=== PATIENT | male | born 1960 | race Caucasian/White ===

== ENCOUNTER 2017-06-17 10:39 | Inpatient (IN) | payer OTHER ==
[~2017-06-17] VITALS: Ht 185.4 cm; Wt 88.9 kg
[2017-06-17] VITALS (14 sets, daily range): BP systolic 105–166; BP diastolic 58–81
[2017-06-17] MEDS ORDERED: NITR0.4T SL (11:09)
[2017-06-17] MEDS ORDERED: ATOR40TA59 PO (11:09)
[2017-06-17] MEDS ORDERED: METO-239 PO (11:09)
[2017-06-17] MEDS ORDERED: TRAM-48 PO (11:09)
[2017-06-17] MEDS ORDERED: cloNIDine HCL 0.1 MG TABLET PO ONE (11:15)
[2017-06-17 11:28] LABS: BASO # 0.1 x10^3/uL (0.0-0.2); BASO % 1 % (0-3); EOS % 1 % (0-3); HEMATOCRIT 47.4 % (39.0-53.0); HEMOGLOBIN 15.6 g/dL (13.0-17.5); LYMPH # 2.1 x10^3/uL (1.0-4.8); LYMPH % 19 % (24-48); MEAN CORPUSCULAR HEMOGLOBIN 29 pg (25-35); MEAN CORPUSCULAR HGB CONC 33 g/dL (31-37); MEAN CORPUSCULAR VOLUME 89 fL (79-100); MONO % 8 % (0-9); NEUT % 71 % (31-73); PLATELET COUNT 226 x10^3/uL (140-400); RED BLOOD COUNT 5.35 x10^6/uL (4.30-5.70); RED CELL DISTRIBUTION WIDTH 14.1 % (11.5-14.5); WHITE BLOOD COUNT 11.1 x10^3/uL (4.0-11.0)
[2017-06-17 11:41] LABS: ANION GAP 9 (6-14); BLOOD UREA NITROGEN 9 mg/dL (8-26); CALCIUM 9.2 mg/dL (8.5-10.1); CARBON DIOXIDE 29 mmol/L (21-32); CHLORIDE 106 mmol/L (98-107); GFR 76.7; GLUCOSE 102 mg/dL (70-99); POTASSIUM 4.6 mmol/L (3.5-5.1); SODIUM 144 mmol/L (136-145)
--- NOTE | 2017-06-17 11:41 | ED.ADGEN ---
Past Medical History Past Medical History: CAD, Depression, High Cholesterol, Heart Disease, Hypertension, Hypotension Past Surgical History: Coronary Bypass Surgery Alcohol Use: None Drug Use: None Adult General Chief Complaint Chief Complaint: HEADACHE HPI HPI Patient is a 57 year old man, history of hypertension, hypercholesterolemia, CAD status post CABG, who presents to the emergency department with a complaint of elevated blood pressures, headache and intermittent chest pain. Patient states he seen by his primary care provider yesterday, after treatment experiencing a headache for the past 3 days. He describes the pain as "all over my head", and associated with some blurred vision. Denies any weakness, numbness or tingling, any nausea or vomiting, any injuries, states he has intermittent "gassy" left upper chest pain that comes and goes. Is not currently experiencing any chest pain, is experiencing headache. Patient states that he was noted to have high blood pressure at the doctor's office, and that his metoprolol which was taking 25 mg daily, was doubled to 50. He states he has taken 50 mg of metoprolol for the past 2 days, including this morning, but since the headache persisted, he came to the ED for evaluation. Patient's blood pressure on arrival to the emergency department is 230s over 120s, heart rate is in the 50s, which patient states is normal for him due to his prolonged use metoprolol, oxygen saturation is 98% on room air rested for rate is 22 and unlabored. Patient denies any fevers, chills, any travel, any neck pain, any muscle aches, any swelling of the extremities, any rashes, any other medication changes any drugs or alcohol. He does smoke a pack of cigarettes daily. Review of Systems Review of Systems Constitutional: Denies fever or chills. [] Eyes: Denies change in visual acuity. [] HENT: Denies nasal congestion or sore throat. [] Respiratory: Denies cough or shortness of breath. [] Cardiovascular: Left upper chest pain, intermittent over the past several days. No edema. GI: Denies abdominal pain, nausea, vomiting, bloody stools or diarrhea. [] : Denies dysuria. [] Musculoskeletal: Denies back pain or joint pain. [] Integument: Denies rash. [] Neurologic: Denies focal weakness or sensory changes. Headache. Blurred vision. Endocrine: Denies polyuria or polydipsia. [] Lymphatic: Denies swollen glands. [] Psychiatric: Denies depression or anxiety. [] Current Medications Current Medications Current Medications Medications (Trade) Dose Ordered Sig/Abdelrahman Start Time Stop Time Status Last Admin Dose Admin Clonidine HCl (Catapres) 0.2 mg 1X ONCE 06/17/17 11:15 06/17/17 11:20 DC 06/17/17 11:29 0.2 MG Nicardipine HCl 50 mg/Sodium Chloride 270 ml @ 0 mls/hr CONT PRN 06/17/17 11:15 06/17/17 12:33 12.5 MLS/HR Allergies Allergies Allergies Coded Allergies Type Severity Reaction Last Updated Verified No Known Drug Allergies 06/17/17 No Physical Exam Physical Exam Constitutional: Well developed, well nourished, no acute distress, non-toxic appearance. [] HENT: Normocephalic, atraumatic, bilateral external ears normal, oropharynx moist, no oral exudates, nose normal. [] Eyes: PERRLA, EOMI, conjunctiva normal, no discharge. [] Neck: Normal range of motion, no tenderness, supple, no stridor. [] Cardiovascular:Heart rate regular rhythm, no murmur, S1, S2, rubs or gallops. [] Lungs & Thorax: Bilateral breath sounds clear to auscultation, no wheezing, rhonchi, rales. No chest or crepitus or tenderness. [] Abdomen: Bowel sounds normal, soft, no tenderness, no rebound, rigidity, no guarding, no masses, no pulsatile masses. [] Skin: Warm, dry, no erythema, no rash. [] Back: No tenderness, no CVA tenderness. [] Extremities: No tenderness, no cyanosis, no clubbing, ROM intact, no edema. Negative Homans sign.[] Neurologic: Alert and oriented X 3, normal motor function, normal sensory function, no focal deficits noted. [] Psychologic: Affect normal, judgement normal, mood normal. [] Current Patient Data Vital Signs Vital Signs Date Time Temp Pulse Resp B/P (MAP) Pulse Ox O2 Delivery O2 Flow Rate FiO2 06/17/17 12:20 64 18 136/78 (97) 97 Room Air 06/17/17 10:47 97.7 97.7 Lab Values Laboratory Tests Test 06/17/17 11:00 White Blood Count 11.1 x10^3/uL (4.0-11.0) H Red Blood Count 5.35 x10^6/uL (4.30-5.70) Hemoglobin 15.6 g/dL (13.0-17.5) Hematocrit 47.4 % (39.0-53.0) Mean Corpuscular Volume 89 fL (79-100) Mean Corpuscular Hemoglobin 29 pg (25-35) Mean Corpuscular Hemoglobin Concent 33 g/dL (31-37) Red Cell Distribution Width 14.1 % (11.5-14.5) Platelet Count 226 x10^3/uL (140-400) Neutrophils (%) (Auto) 71 % (31-73) Lymphocytes (%) (Auto) 19 % (24-48) L Monocytes (%) (Auto) 8 % (0-9) Eosinophils (%) (Auto) 1 % (0-3) Basophils (%) (Auto) 1 % (0-3) Neutrophils # (Auto) 7.9 x10^3uL (1.8-7.7) H Lymphocytes # (Auto) 2.1 x10^3/uL (1.0-4.8) Monocytes # (Auto) 0.9 x10^3/uL (0.0-1.1) Eosinophils # (Auto) 0.1 x10^3/uL (0.0-0.7) Basophils # (Auto) 0.1 x10^3/uL (0.0-0.2) Sodium Level 144 mmol/L (136-145) Potassium Level 4.6 mmol/L (3.5-5.1) Chloride Level 106 mmol/L (98-107) Carbon Dioxide Level 29 mmol/L (21-32) Anion Gap 9 (6-14) Blood Urea Nitrogen 9 mg/dL (8-26) Creatinine 1.0 mg/dL (0.7-1.3) Estimated GFR (Cockcroft-Gault) 76.7 Glucose Level 102 mg/dL (70-99) H Calcium Level 9.2 mg/dL (8.5-10.1) Total Bilirubin 0.2 mg/dL (0.2-1.0) Direct Bilirubin < 0.1 mg/dL (0.0-0.2) Aspartate Amino Transferase (AST) 20 U/L (15-37) Alanine Aminotransferase (ALT) 32 U/L (16-63) Alkaline Phosphatase 102 U/L (46-116) Troponin I Quantitative < 0.017 ng/mL (0.000-0.055) RC-Qmo-L-Type Natriuretic Peptide 245 pg/mL (0-124) H Total Protein 7.2 g/dL (6.4-8.2) Albumin 3.5 g/dL (3.4-5.0) Thyroid Stimulating Hormone (TSH) 2.011 uIU/mL (0.358-3.74) Laboratory Tests 06/17/17 11:00 Laboratory Tests 06/17/17 11:00 EKG EKG EC: Sinus bradycardia, heart rate 52 beats per minutes, upright axis, QTC of 368, NC 154, QRS of 90, patient with contour abnormality is noted in the anterior septal leads, but no ST depressions or elevations. Abnormal ECG, no prior for comparison. As interpreted by me.[] Radiology/Procedures Radiology/Procedures [][address] [id number] IMAGING REPORT Signed PATIENT: PRESTON BORJA ACCOUNT: [id number] : 1960 LOCATION: ER AGE: 57 SEX: M EXAM STATUS: REG ER ORD. PHYSICIAN: FOUZIA LAZARO DO REASON: HTN/CP PROCEDURE: PORTABLE CHEST 1V Portable chest, 06/17/2017: History: Hypertension, chest pain Comparison is made to a study from 11/22/2009. There has been a previous median sternotomy. The heart size and pulmonary vascularity are normal. The lungs are clear. There is no evidence of pleural fluid. IMPRESSION: No acute cardiopulmonary abnormality is detected. DICTATED and SIGNED BY: DILCIA CAMPO MD DATE: 06/17/17 1131 CC: FOUZIA LAZARO DO; DYLON NICHOLS MD ~ Impressions: [address] [id number] IMAGING REPORT Signed PATIENT: PRESTON BORJA ACCOUNT: [id number] : 1960 LOCATION: ER AGE: 57 SEX: M EXAM STATUS: REG ER ORD. PHYSICIAN: FOUZIA LAZARO DO REASON: JAVIER/HTN PROCEDURE: CT HEAD WO CONTRAST CT of the head without contrast, 06/17/2017: History: Headache, hypertension The ventricles are within normal limits in size. There is no shift of the midline structures. There is no evidence of acute intracranial hemorrhage or mass effect. IMPRESSION: No acute intracranial abnormality is detected. RS Compliance Statement: One or more of the following individualized dose reduction techniques were utilized for this examination: 1. Automated exposure control 2. Adjustment of the mA and/or kV according to patient size 3. Use of iterative reconstruction technique DICTATED and SIGNED BY: DILCIA CAMPO MD DATE: 06/17/17 1158 CC: FOUZIA LAZARO DO; DYLON NICHOLS MD ~ Course & Med Decision Making Course & Med Decision Making Pertinent Labs and Imaging studies reviewed. (See chart for details) Patient with generalized blurred vision in both eyes, without any visual field cuts. Normal neurologic examination. Malignant hypertension, with failure of outpatient oral therapy. CT of the head obtained reveals no concerning findings , patient did receive Catapres 0.1 mg orally in the emergency department, as he has already taken his home beta chris with a heart rate in the 50s. Chest x- ray was unremarkable, laboratory studies not reveal any acutely concerning findings. Patient was initiated on a nicardipine infusion with good effect, blood pressures in the 180s over 70s, with significant improvement of headache and blurred vision. Patient is agreeable for [facility] or the hospital for titration of blood pressure control, and transition oral medications with cardiology. I did discuss findings as above with Dr. Quiros of internal medicine , patient accepted to his service as a full admission to the ICU for continued blood pressure management and monitoring and titration, patient's nicardipine was further titrated down, blood pressures to 130s over 70s. Patient remains clinically stable and comfortable in the emergency department. Consultation placed for Dr. Abdi cardiology with bridge orders entered per discussion. Dragon Disclaimer Dragon Disclaimer This electronic medical record was generated, in whole or in part, using a voice recognition dictation system. Departure Impression: Primary Impression: Malignant hypertension Disposition: ADMITTED INPATIENT Admitting Physician: Janis Quiros Condition: IMPROVED FOUZIA LAZARO DO Jun 17, 2017 11:41
[2017-06-17 11:47] LABS: ALBUMIN 3.5 g/dL (3.4-5.0); ALK PHOS 102 U/L (46-116); ALT (SGPT) 32 U/L (16-63); AST (SGOT) 20 U/L (15-37); DIRECT BILIRUBIN < 0.1 mg/dL (0.0-0.2); TOTAL BILIRUBIN 0.2 mg/dL (0.2-1.0); TOTAL PROTEIN 7.2 g/dL (6.4-8.2)
--- NOTE | 2017-06-17 12:01 | RAD ---
CT of the head without contrast, 06/17/2017: History: Headache, hypertension The ventricles are within normal limits in size. There is no shift of the midline structures. There is no evidence of acute intracranial hemorrhage or mass effect. IMPRESSION: No acute intracranial abnormality is detected. PQRS Compliance Statement: One or more of the following individualized dose reduction techniques were utilized for this examination: 1. Automated exposure control 2. Adjustment of the mA and/or kV according to patient size 3. Use of iterative reconstruction technique
[2017-06-17] MEDS ORDERED: ONDANSETRON PF 4 MG/2 ML VIAL. IV PRN (12:45)
[2017-06-17] MEDS: MORPHINE SULFATE 2 MG/ML DISP.SYRIN. IV PRN ×3 (13:28→23:34)
[2017-06-17] MEDS: ACETAMINOPHEN 325 MG TABLET. PO PRN ×2 (13:28→23:34)
[2017-06-17] MEDS ORDERED: AMOX875T PO (14:59)
[2017-06-17] MEDS: traMADol 50 MG TABLET PO SCH ×2 (15:10→21:10)
[2017-06-17] MEDS: AMOXICILLIN 250 MG CAPSULE. PO SCH ×2 (15:36→21:09)
--- NOTE | 2017-06-17 17:24 | PDOC1 ---
History and Physical Date of Admission Date of Admission DATE: 06/17/17 TIME: 17:16 Identification/Chief Complaint Chief Complaint headache Problems: Source Source: Chart review, Patient History of Present Illness History of Present Illness Mr. Mckeon, is a 57 year old man, admit with headache and markedly elevated blood pressures, and intermittent chest pain. had seen his PCP this week, they doubled his metoprolol for HTN headache, with some blurry visual change, "it looks like The Matrix when I move my hand" no hallucinations, no drug use, no travel, no change He reported chest pain to the ER, but reported none to me. "gassy" upper chest pain he has slept some after doses of morphine have helped his headache, BP has been up, but JAVIER has been intermittent, he still smokes after CABG Past Medical History Past Medical History history of hypertension, hypercholesterolemia, CAD status post CABG, Cardiovascular: CAD, HTN Pulmonary: No pertinent hx Hepatobiliary: No pertinent hx Psych: No pertinent hx Musculoskeletal: low back pain Rheumatologic: No pertinent hx Infectious disease: No pertinent hx Endocrine: No pertinent hx Dermatology: No pertinent hx Past Surgical History Past Surgical History: CABG Family History Family History: Hypertension Social History Smoke: 1 pack per day ALCOHOL: none Drugs: None Current Problem List Problem List Problems Medical Problems: (1) Malignant hypertension Status: Acute Problems: Current Medications Current Medications Current Medications Clonidine HCl (Catapres) 0.2 mg 1X ONCE PO Last administered on 06/17/17 11:29 ; Start 06/17/17 at 11:15; Stop 06/17/17 at 11:20; Status DC Nicardipine HCl 50 mg/Sodium Chloride 270 ml @ 0 mls/hr CONT PRN IV SEE I/O RECORD Last administered on 06/17/17 12:33; Start 06/17/17 at 11:15 Ondansetron HCl (Zofran) 4 mg PRN Q8HRS PRN IV NAUSEA/VOMITING; Start 06/17/17 at 12:45; Stop 06/18/17 at 12:44 Morphine Sulfate 2 mg PRN Q2HR PRN IV PAIN SEVERE Last administered on 15:05; Start 06/17/17 at 13:15 Acetaminophen (Tylenol) 650 mg PRN Q6HRS PRN PO HEADACHE Last administered on 13:28; Start 06/17/17 at 13:15 Tramadol HCl (Ultram) 50 mg Q8HRS PO ; Start 06/17/17 at 15:10 Amoxicillin (Amoxil) 750 mg BID PO Last administered on 06/17/17t 15:36; Start 06/17/17 at 15:30 Active Scripts Active Reported Amoxicillin 875 Mg Tablet 875 Mg PO BID Atorvastatin Calcium 40 Mg Tablet 1 Tab PO DAILY Metoprolol Succinate ( Xl ) (Metoprolol Succinate) 25 Mg Tab.er.24h 1 Tab PO DAILY Nitrostat (Nitroglycerin) 0.4 Mg Tab.subl 1 Tab SL UD Ultram (Tramadol Hcl) 50 Mg Tablet 1-2 Tab PO Q8HRS Allergies Allergies: Coded Allergies: No Known Drug Allergies (Unverified , 06/17/17) ROS General: YES: Other, No: Chills, Night Sweats, Fatigue, Malaise, Appetite PSYCHOLOGICAL ROS: No: Anxiety, Behavioral Disorder, Concentration difficultie , Decreased libido, Depression, Disorientation, Hallucinations, Hostility, Irritablity, Memory difficulties, Mood Swings, Obsessive thoughts, Other Eyes: No Blurry vision, No Decreased vision, No Double vision, No Dry eyes, No Excessive tearing, No Eye Pain, No Itchy Eyes, No Loss of vision, No Photophobia , No Scotomata, No Uses contacts, No Uses glasses, No Other HEENT: YES: Heacaches, Visual Changes, No: Hearing change, Nasal congestion, Nasal discharge, Oral lesions, Sinus pain, Sore Throat, Epistaxis, Sneezing, Snoring, Tinnitus, Vertigo, Vocal changes, Other Respiratory: No: Cough, Hemoptysis, Orthopnea, Pleuritic Pain, Shortness of breath, SOB with excertion, Sputum Changes, Stridor, Tachypnea, Wheezing, Other Cardiovascular: No Chest Pain, No Palpitations, No Orthopnea, No Paroxysmal Noc. Dyspnea, No Edema, No Lt Headedness, No Other Gastrointestinal: No Nausea, No Vomiting, No Abdominal Pain, No Diarrhea, No Constipation, No Melena, No Hematochezia, No Other Genitourinary: No Dysuria, No Frequency, No Incontinence, No Hematuria, No Retention, No Discharge, No Urgency, No Pain, No Flank Pain, No Other, No , No , No , No , No , No , No Musculoskeletal: No Gait Disturbance, No Joint Pain, No Joint Stiffness, No Joint Swelling, No Muscle Pain, No Muscular Weakness, No Pain In:, No Swelling In:, No Other Neurological: No Behavorial Changes, No Bowel/Bladder ControlChng, No Confusion , No Dizziness, No Gait Disturbance, No Headaches, No Impaired Coord/balance, No Memory Loss, No Numbness/Tingling, No Seizures, No Speech Problems, No Tremors, No Visual Changes, No Weakness, No Other Skin: No Dry Skin, No Eczema, No Hair Changes, No Lumps, No Mole Changes, No Mottling, No Nail Changes, No Pruritus, No Rash, No Skin Lesion Changes, No Other, No Acne Physical Exam Physical Exam no nuchal rigidity, neg psoas sign General: Alert, Oriented X3, Cooperative, No acute distress HEENT: Atraumatic, PERRLA, EOMI, Mucous membr. moist/pink Lungs: Normal air movement, Other (min rales) Abdomen: Normal bowel sounds, Soft Rectal Exam: not examined, deferred Extremities: No clubbing, No edema, Normal pulses Skin: No rashes, No breakdown Neuro: Normal speech, Strength at 5/5 X4 ext, Sensation intact Psych/Mental Status: Mental status NL, Mood NL Vitals Vitals Vital Signs Date Time Temp Pulse Resp B/P (MAP) Pulse Ox O2 Delivery O2 Flow Rate FiO2 06/17/17 17:08 58 135/59 (84) 99 Room Air 06/17/17 16:00 98.1 98.1 06/17/17 12:36 18 Labs Labs Laboratory Tests Test 06/17/17 11:00 06/17/17 14:00 White Blood Count 11.1 x10^3/uL (4.0-11.0) Red Blood Count 5.35 x10^6/uL (4.30-5.70) Hemoglobin 15.6 g/dL (13.0-17.5) Hematocrit 47.4 % (39.0-53.0) Mean Corpuscular Volume 89 fL (79-100) Mean Corpuscular Hemoglobin 29 pg (25-35) Mean Corpuscular Hemoglobin Concent 33 g/dL (31-37) Red Cell Distribution Width 14.1 % (11.5-14.5) Platelet Count 226 x10^3/uL (140-400) Neutrophils (%) (Auto) 71 % (31-73) Lymphocytes (%) (Auto) 19 % (24-48) Monocytes (%) (Auto) 8 % (0-9) Eosinophils (%) (Auto) 1 % (0-3) Basophils (%) (Auto) 1 % (0-3) Neutrophils # (Auto) 7.9 x10^3uL (1.8-7.7) Lymphocytes # (Auto) 2.1 x10^3/uL (1.0-4.8) Monocytes # (Auto) 0.9 x10^3/uL (0.0-1.1) Eosinophils # (Auto) 0.1 x10^3/uL (0.0-0.7) Basophils # (Auto) 0.1 x10^3/uL (0.0-0.2) Sodium Level 144 mmol/L (136-145) Potassium Level 4.6 mmol/L (3.5-5.1) Chloride Level 106 mmol/L (98-107) Carbon Dioxide Level 29 mmol/L (21-32) Anion Gap 9 (6-14) Blood Urea Nitrogen 9 mg/dL (8-26) Creatinine 1.0 mg/dL (0.7-1.3) Estimated GFR (Cockcroft-Gault) 76.7 Glucose Level 102 mg/dL (70-99) Calcium Level 9.2 mg/dL (8.5-10.1) Total Bilirubin 0.2 mg/dL (0.2-1.0) Direct Bilirubin < 0.1 mg/dL (0.0-0.2) Aspartate Amino Transf (AST/SGOT) 20 U/L (15-37) Alanine Aminotransferase (ALT/SGPT) 32 U/L (16-63) Alkaline Phosphatase 102 U/L (46-116) Troponin I Quantitative < 0.017 ng/mL (0.000-0.055) < 0.017 ng/mL (0.000-0.055) NB-Tmy-Q-Type Natriuretic Peptide 245 pg/mL (0-124) Total Protein 7.2 g/dL (6.4-8.2) Albumin 3.5 g/dL (3.4-5.0) Thyroid Stimulating Hormone (TSH) 2.011 uIU/mL (0.358-3.74) Laboratory Tests Test 06/17/17 11:00 06/17/17 14:00 White Blood Count 11.1 x10^3/uL (4.0-11.0) Red Blood Count 5.35 x10^6/uL (4.30-5.70) Hemoglobin 15.6 g/dL (13.0-17.5) Hematocrit 47.4 % (39.0-53.0) Mean Corpuscular Volume 89 fL (79-100) Mean Corpuscular Hemoglobin 29 pg (25-35) Mean Corpuscular Hemoglobin Concent 33 g/dL (31-37) Red Cell Distribution Width 14.1 % (11.5-14.5) Platelet Count 226 x10^3/uL (140-400) Neutrophils (%) (Auto) 71 % (31-73) Lymphocytes (%) (Auto) 19 % (24-48) Monocytes (%) (Auto) 8 % (0-9) Eosinophils (%) (Auto) 1 % (0-3) Basophils (%) (Auto) 1 % (0-3) Neutrophils # (Auto) 7.9 x10^3uL (1.8-7.7) Lymphocytes # (Auto) 2.1 x10^3/uL (1.0-4.8) Monocytes # (Auto) 0.9 x10^3/uL (0.0-1.1) Eosinophils # (Auto) 0.1 x10^3/uL (0.0-0.7) Basophils # (Auto) 0.1 x10^3/uL (0.0-0.2) Sodium Level 144 mmol/L (136-145) Potassium Level 4.6 mmol/L (3.5-5.1) Chloride Level 106 mmol/L (98-107) Carbon Dioxide Level 29 mmol/L (21-32) Anion Gap 9 (6-14) Blood Urea Nitrogen 9 mg/dL (8-26) Creatinine 1.0 mg/dL (0.7-1.3) Estimated GFR (Cockcroft-Gault) 76.7 Glucose Level 102 mg/dL (70-99) Calcium Level 9.2 mg/dL (8.5-10.1) Total Bilirubin 0.2 mg/dL (0.2-1.0) Direct Bilirubin < 0.1 mg/dL (0.0-0.2) Aspartate Amino Transf (AST/SGOT) 20 U/L (15-37) Alanine Aminotransferase (ALT/SGPT) 32 U/L (16-63) Alkaline Phosphatase 102 U/L (46-116) Troponin I Quantitative < 0.017 ng/mL (0.000-0.055) < 0.017 ng/mL (0.000-0.055) UI-Vpn-C-Type Natriuretic Peptide 245 pg/mL (0-124) Total Protein 7.2 g/dL (6.4-8.2) Albumin 3.5 g/dL (3.4-5.0) Thyroid Stimulating Hormone (TSH) 2.011 uIU/mL (0.358-3.74) VTE Prophylaxis Ordered VTE Prophylaxis Devices: No VTE Pharmacological Prophylaxi: No Assessment/Plan Assessment/Plan ACCELerated, malignant htn headache, with aura, some migranous component, try tryptan tobaccoism, I urged cessation, my make the JAVIER worse IVONE MERCHANT MD Jun 17, 2017 17:24
[2017-06-17] MEDS ORDERED: METOPROLOL SUCC 24HR ER 25 MG TAB.ER.24H. PO SCH (17:30)
[2017-06-17] MEDS ORDERED: NITROGLYCERIN SUBLINGUAL 0.4 MG BOTTLE OF 25. SL PRN (17:30)
[2017-06-17] MEDS: SUMAtriptan SUCCINATE 25 MG TABLET PO PRN ×2 (18:16→21:53)
[2017-06-17] MEDS: ATORVASTATIN CALCIUM 40 MG TABLET. PO SCH (21:08)
[2017-06-17] MEDS ORDERED: NICOTINE POLACRILEX 2MG GUM PACKAGE of 12. BC PRN (21:30)
[2017-06-17] MEDS ORDERED: amLODIPine BESYLATE 10 MG TABLET PO ONE (21:45)
[2017-06-17] MEDS ORDERED: LISINOPRIL 20 MG TABLET PO ONE (21:45)
[2017-06-17] MEDS: NICOTINE 21MG PATCH. TD PRN (21:51)
[2017-06-18] VITALS (22 sets, daily range): BP systolic 106–190; BP diastolic 59–97
[2017-06-18] MEDS: MORPHINE SULFATE 2 MG/ML DISP.SYRIN. IV PRN ×2 (02:59→18:54)
[2017-06-18] MEDS: SUMAtriptan SUCCINATE 25 MG TABLET PO PRN (03:05)
[2017-06-18 05:49] LABS: BASO # 0.1 x10^3/uL (0.0-0.2); BASO % 1 % (0-3); EOS % 1 % (0-3); HEMATOCRIT 44.8 % (39.0-53.0); HEMOGLOBIN 15.2 g/dL (13.0-17.5); LYMPH # 2.2 x10^3/uL (1.0-4.8); LYMPH % 19 % (24-48); MEAN CORPUSCULAR HEMOGLOBIN 29 pg (25-35); MEAN CORPUSCULAR HGB CONC 34 g/dL (31-37); MEAN CORPUSCULAR VOLUME 87 fL (79-100); MONO % 8 % (0-9); NEUT % 71 % (31-73); PLATELET COUNT 220 x10^3/uL (140-400); RED BLOOD COUNT 5.16 x10^6/uL (4.30-5.70); RED CELL DISTRIBUTION WIDTH 13.9 % (11.5-14.5); WHITE BLOOD COUNT 11.6 x10^3/uL (4.0-11.0)
[2017-06-18 05:58] LABS: CALCIUM 8.8 mg/dL (8.5-10.1); GFR 76.7
--- NOTE | 2017-06-18 06:06 | EKG ---
[facility] [address] [place] [address] Test Date: 2017-06-17 Test Time: 11:00:26 Pat Name: PRESTON BORJA Department: Room: 104 1 Gender: M [facility] Coord[facility]: : 1960 Requested By: FOUZIA LAZARO Order Number: [id number] Reading MD: Chris Abdi Measurements Intervals [place] Rate: 52 P: 27 NM: 164 QRS: 30 QRSD: 90 T: 28 QT: 394 QTc: 368 Interpretive Statements SINUS RHYTHM Electronically Signed On 06-18-2017 8:27:48 CDT by Chris Abdi
[2017-06-18] MEDS: traMADol 50 MG TABLET PO SCH ×3 (06:22→22:00)
--- NOTE | 2017-06-18 08:40 | PDOC2 ---
CARDIOLOGY CONSULT NOTE CHEIF COMPLAINT: Chest pain Problems: HPI: Pleasant 57 y.o man coming to the hospital for elevated BP. In ER was given Cardene gtt and started to have better control. SOCHX: No significant alcohol, tobacco or illicit drug use. FAMHX: No early CAD or sudden . CURRENT MEDS: Meds reviewed. ALLERGIES: Allergies Coded Allergies Type Severity Reaction Last Updated Verified No Known Drug Allergies 06/17/17 No ROS: Negative for 07/22 systems reviewed unless otherwise noted above in HPI. PHYSICAL EXAM: Vital Signs: Vital Signs Date Time Temp Pulse Resp B/P (MAP) Pulse Ox O2 Delivery O2 Flow Rate FiO2 06/18/17 06:31 50 14 137/77 (97) 97 Room Air 06/18/17 04:00 98.5 98.5 Physical Exam: GEN.: No apparent distress. Alert and oriented. HEENT: Head is normocephalic, atraumatic NECK: Supple. LUNGS: Clear to auscultation. HEART: RRR, S1, S2 present. Peripheral pulses intact ABDOMEN: Soft, nontender. Positive bowel sounds. EXTREMITIES: Without any cyanosis. NEUROLOGIC: Normal speech, normal tone PSYCHIATRIC: Normal affect, normal mood. SKIN: No ulcerations DIAGNOSTIC TESTING: Head CT negative Trop negative. ASSESSMENT: 1. Hypertensive urgency. 2. Headaches 3. CAD s/p CABG PLAN: 1. Doing well after amlodipine and lisinopril 2. Will stop Toprol given jackie 3. Start Lisinopril 20mg daily (baseline BP in PCP office apparently 180 systolic). 4. Headache w/u per PCP. 5. Outpt f/u in cardiology with Dr. Bridges Thanks for consult. Pls call with questions. VENKATESH DALTON MD Jun 18, 2017 08:40
[2017-06-18] MEDS ORDERED: CYCLOBENZAPRINE 10 MG TABLET. PO ONE (09:30)
[2017-06-18] MEDS: AMOXICILLIN 250 MG CAPSULE. PO SCH ×2 (09:43→20:57)
[2017-06-18] MEDS: LISINOPRIL 10 MG TABLET PO SCH (09:43)
[2017-06-18] MEDS ORDERED: KETOROLAC TROMETHAMINE 30 MG/ML INJ. IV ONE (09:45)
--- NOTE | 2017-06-18 09:47 | PDOC ---
PROGRESS NOTES Chief Complaint Chief Complaint ACCELerated, malignant htn headache, with aura, some migranous component, Smoker History of Present Illness History of Present Illness Off cardizem gtt BP better BUt headache persists Wants to go home, does not want any more tests Systolic at PCP 180s HR 50s CArds stopped BB, (jackie) started lisinopril NO relief with imitrex 50 Relived by shoulder massage PLAN: TOradol 30 IV x 1 now TRial of flexeril prn COnsult neuro, but if pt feels better later and cant wait for neuro then ok to cancel consult Rx in chart REally wants to go home today, with headache better Dw RN ailyn and and pt Vitals Vitals Vital Signs Date Time Temp Pulse Resp B/P (MAP) Pulse Ox O2 Delivery O2 Flow Rate FiO2 06/18/17 09:43 57 149/77 06/18/17 06:31 14 97 Room Air 06/18/17 04:00 98.5 98.5 Physical Exam General: Alert, Oriented X3, Cooperative, No acute distress Abdomen: Normal bowel sounds, Soft Extremities: No clubbing, No edema, Normal pulses Skin: No rashes, No breakdown Labs LABS Laboratory Tests Test 06/17/17 11:00 06/17/17 14:00 06/17/17 17:30 06/18/17 04:00 White Blood Count 11.1 x10^3/uL (4.0-11.0) 11.6 x10^3/uL (4.0-11.0) Red Blood Count 5.35 x10^6/uL (4.30-5.70) 5.16 x10^6/uL (4.30-5.70) Hemoglobin 15.6 g/dL (13.0-17.5) 15.2 g/dL (13.0-17.5) Hematocrit 47.4 % (39.0-53.0) 44.8 % (39.0-53.0) Mean Corpuscular Volume 89 fL (79-100) 87 fL (79-100) Mean Corpuscular Hemoglobin 29 pg (25-35) 29 pg (25-35) Mean Corpuscular Hemoglobin Concent 33 g/dL (31-37) 34 g/dL (31-37) Red Cell Distribution Width 14.1 % (11.5-14.5) 13.9 % (11.5-14.5) Platelet Count 226 x10^3/uL (140-400) 220 x10^3/uL (140-400) Neutrophils (%) (Auto) 71 % (31-73) 71 % (31-73) Lymphocytes (%) (Auto) 19 % (24-48) 19 % (24-48) Monocytes (%) (Auto) 8 % (0-9) 8 % (0-9) Eosinophils (%) (Auto) 1 % (0-3) 1 % (0-3) Basophils (%) (Auto) 1 % (0-3) 1 % (0-3) Neutrophils # (Auto) 7.9 x10^3uL (1.8-7.7) 8.3 x10^3uL (1.8-7.7) Lymphocytes # (Auto) 2.1 x10^3/uL (1.0-4.8) 2.2 x10^3/uL (1.0-4.8) Monocytes # (Auto) 0.9 x10^3/uL (0.0-1.1) 0.9 x10^3/uL (0.0-1.1) Eosinophils # (Auto) 0.1 x10^3/uL (0.0-0.7) 0.2 x10^3/uL (0.0-0.7) Basophils # (Auto) 0.1 x10^3/uL (0.0-0.2) 0.1 x10^3/uL (0.0-0.2) Sodium Level 144 mmol/L (136-145) 142 mmol/L (136-145) Potassium Level 4.6 mmol/L (3.5-5.1) 4.0 mmol/L (3.5-5.1) Chloride Level 106 mmol/L (98-107) 105 mmol/L (98-107) Carbon Dioxide Level 29 mmol/L (21-32) 26 mmol/L (21-32) Anion Gap 9 (6-14) 11 (6-14) Blood Urea Nitrogen 9 mg/dL (8-26) 9 mg/dL (8-26) Creatinine 1.0 mg/dL (0.7-1.3) 1.0 mg/dL (0.7-1.3) Estimated GFR (Cockcroft-Gault) 76.7 76.7 Glucose Level 102 mg/dL (70-99) 120 mg/dL (70-99) Calcium Level 9.2 mg/dL (8.5-10.1) 8.8 mg/dL (8.5-10.1) Total Bilirubin 0.2 mg/dL (0.2-1.0) Direct Bilirubin < 0.1 mg/dL (0.0-0.2) Aspartate Amino Transf (AST/SGOT) 20 U/L (15-37) Alanine Aminotransferase (ALT/SGPT) 32 U/L (16-63) Alkaline Phosphatase 102 U/L (46-116) Troponin I Quantitative < 0.017 ng/mL (0.000-0.055) < 0.017 ng/mL (0.000-0.055) < 0.017 ng/mL (0.000-0.055) MA-Dma-Q-Type Natriuretic Peptide 245 pg/mL (0-124) Total Protein 7.2 g/dL (6.4-8.2) Albumin 3.5 g/dL (3.4-5.0) Thyroid Stimulating Hormone (TSH) 2.011 uIU/mL (0.358-3.74) Review of Systems Review of Systems headache Assessment and Plan Assessmemt and Plan Problems Medical Problems: (1) Malignant hypertension Status: Acute Problems: Comment Review of Relevant I have reviewed the following items mateo (where applicable) has been applied. Labs Laboratory Tests Test 06/17/17 11:00 06/17/17 14:00 06/17/17 17:30 06/18/17 04:00 White Blood Count 11.1 x10^3/uL (4.0-11.0) 11.6 x10^3/uL (4.0-11.0) Red Blood Count 5.35 x10^6/uL (4.30-5.70) 5.16 x10^6/uL (4.30-5.70) Hemoglobin 15.6 g/dL (13.0-17.5) 15.2 g/dL (13.0-17.5) Hematocrit 47.4 % (39.0-53.0) 44.8 % (39.0-53.0) Mean Corpuscular Volume 89 fL (79-100) 87 fL (79-100) Mean Corpuscular Hemoglobin 29 pg (25-35) 29 pg (25-35) Mean Corpuscular Hemoglobin Concent 33 g/dL (31-37) 34 g/dL (31-37) Red Cell Distribution Width 14.1 % (11.5-14.5) 13.9 % (11.5-14.5) Platelet Count 226 x10^3/uL (140-400) 220 x10^3/uL (140-400) Neutrophils (%) (Auto) 71 % (31-73) 71 % (31-73) Lymphocytes (%) (Auto) 19 % (24-48) 19 % (24-48) Monocytes (%) (Auto) 8 % (0-9) 8 % (0-9) Eosinophils (%) (Auto) 1 % (0-3) 1 % (0-3) Basophils (%) (Auto) 1 % (0-3) 1 % (0-3) Neutrophils # (Auto) 7.9 x10^3uL (1.8-7.7) 8.3 x10^3uL (1.8-7.7) Lymphocytes # (Auto) 2.1 x10^3/uL (1.0-4.8) 2.2 x10^3/uL (1.0-4.8) Monocytes # (Auto) 0.9 x10^3/uL (0.0-1.1) 0.9 x10^3/uL (0.0-1.1) Eosinophils # (Auto) 0.1 x10^3/uL (0.0-0.7) 0.2 x10^3/uL (0.0-0.7) Basophils # (Auto) 0.1 x10^3/uL (0.0-0.2) 0.1 x10^3/uL (0.0-0.2) Sodium Level 144 mmol/L (136-145) 142 mmol/L (136-145) Potassium Level 4.6 mmol/L (3.5-5.1) 4.0 mmol/L (3.5-5.1) Chloride Level 106 mmol/L (98-107) 105 mmol/L (98-107) Carbon Dioxide Level 29 mmol/L (21-32) 26 mmol/L (21-32) Anion Gap 9 (6-14) 11 (6-14) Blood Urea Nitrogen 9 mg/dL (8-26) 9 mg/dL (8-26) Creatinine 1.0 mg/dL (0.7-1.3) 1.0 mg/dL (0.7-1.3) Estimated GFR (Cockcroft-Gault) 76.7 76.7 Glucose Level 102 mg/dL (70-99) 120 mg/dL (70-99) Calcium Level 9.2 mg/dL (8.5-10.1) 8.8 mg/dL (8.5-10.1) Total Bilirubin 0.2 mg/dL (0.2-1.0) Direct Bilirubin < 0.1 mg/dL (0.0-0.2) Aspartate Amino Transf (AST/SGOT) 20 U/L (15-37) Alanine Aminotransferase (ALT/SGPT) 32 U/L (16-63) Alkaline Phosphatase 102 U/L (46-116) Troponin I Quantitative < 0.017 ng/mL (0.000-0.055) < 0.017 ng/mL (0.000-0.055) < 0.017 ng/mL (0.000-0.055) QP-Mbi-G-Type Natriuretic Peptide 245 pg/mL (0-124) Total Protein 7.2 g/dL (6.4-8.2) Albumin 3.5 g/dL (3.4-5.0) Thyroid Stimulating Hormone (TSH) 2.011 uIU/mL (0.358-3.74) Laboratory Tests Test 06/17/17 11:00 06/17/17 14:00 06/17/17 17:30 06/18/17 04:00 White Blood Count 11.1 x10^3/uL (4.0-11.0) 11.6 x10^3/uL (4.0-11.0) Red Blood Count 5.35 x10^6/uL (4.30-5.70) 5.16 x10^6/uL (4.30-5.70) Hemoglobin 15.6 g/dL (13.0-17.5) 15.2 g/dL (13.0-17.5) Hematocrit 47.4 % (39.0-53.0) 44.8 % (39.0-53.0) Mean Corpuscular Volume 89 fL (79-100) 87 fL (79-100) Mean Corpuscular Hemoglobin 29 pg (25-35) 29 pg (25-35) Mean Corpuscular Hemoglobin Concent 33 g/dL (31-37) 34 g/dL (31-37) Red Cell Distribution Width 14.1 % (11.5-14.5) 13.9 % (11.5-14.5) Platelet Count 226 x10^3/uL (140-400) 220 x10^3/uL (140-400) Neutrophils (%) (Auto) 71 % (31-73) 71 % (31-73) Lymphocytes (%) (Auto) 19 % (24-48) 19 % (24-48) Monocytes (%) (Auto) 8 % (0-9) 8 % (0-9) Eosinophils (%) (Auto) 1 % (0-3) 1 % (0-3) Basophils (%) (Auto) 1 % (0-3) 1 % (0-3) Neutrophils # (Auto) 7.9 x10^3uL (1.8-7.7) 8.3 x10^3uL (1.8-7.7) Lymphocytes # (Auto) 2.1 x10^3/uL (1.0-4.8) 2.2 x10^3/uL (1.0-4.8) Monocytes # (Auto) 0.9 x10^3/uL (0.0-1.1) 0.9 x10^3/uL (0.0-1.1) Eosinophils # (Auto) 0.1 x10^3/uL (0.0-0.7) 0.2 x10^3/uL (0.0-0.7) Basophils # (Auto) 0.1 x10^3/uL (0.0-0.2) 0.1 x10^3/uL (0.0-0.2) Sodium Level 144 mmol/L (136-145) 142 mmol/L (136-145) Potassium Level 4.6 mmol/L (3.5-5.1) 4.0 mmol/L (3.5-5.1) Chloride Level 106 mmol/L (98-107) 105 mmol/L (98-107) Carbon Dioxide Level 29 mmol/L (21-32) 26 mmol/L (21-32) Anion Gap 9 (6-14) 11 (6-14) Blood Urea Nitrogen 9 mg/dL (8-26) 9 mg/dL (8-26) Creatinine 1.0 mg/dL (0.7-1.3) 1.0 mg/dL (0.7-1.3) Estimated GFR (Cockcroft-Gault) 76.7 76.7 Glucose Level 102 mg/dL (70-99) 120 mg/dL (70-99) Calcium Level 9.2 mg/dL (8.5-10.1) 8.8 mg/dL (8.5-10.1) Total Bilirubin 0.2 mg/dL (0.2-1.0) Direct Bilirubin < 0.1 mg/dL (0.0-0.2) Aspartate Amino Transf (AST/SGOT) 20 U/L (15-37) Alanine Aminotransferase (ALT/SGPT) 32 U/L (16-63) Alkaline Phosphatase 102 U/L (46-116) Troponin I Quantitative < 0.017 ng/mL (0.000-0.055) < 0.017 ng/mL (0.000-0.055) < 0.017 ng/mL (0.000-0.055) VA-Lxa-J-Type Natriuretic Peptide 245 pg/mL (0-124) Total Protein 7.2 g/dL (6.4-8.2) Albumin 3.5 g/dL (3.4-5.0) Thyroid Stimulating Hormone (TSH) 2.011 uIU/mL (0.358-3.74) Medications Current Medications Clonidine HCl (Catapres) 0.2 mg 1X ONCE PO Last administered on 06/17/17 11:29 ; Start 06/17/17 at 11:15; Stop 06/17/17 at 11:20; Status DC Nicardipine HCl 50 mg/Sodium Chloride 270 ml @ 0 mls/hr CONT PRN IV SEE I/O RECORD Last administered on 06/17/17 12:33; Start 06/17/17 at 11:15; Stop at 17:15; Status DC Ondansetron HCl (Zofran) 4 mg PRN Q8HRS PRN IV NAUSEA/VOMITING; Start 06/17/17 at 12:45; Stop 06/18/17 at 12:44 Morphine Sulfate 2 mg PRN Q2HR PRN IV PAIN SEVERE Last administered on 02:59; Start 06/17/17 at 13:15 Acetaminophen (Tylenol) 650 mg PRN Q6HRS PRN PO HEADACHE Last administered on 23:34; Start 06/17/17 at 13:15 Tramadol HCl (Ultram) 50 mg Q8HRS PO Last administered on 06/18/17 06:22; Start 06/17/17 at 15:10 Amoxicillin (Amoxil) 750 mg BID PO Last administered on 06/18/17 09:43; Start 06/17/17 at 15:30 Sumatriptan Succinate (Imitrex) 50 mg PRN Q2HR PRN PO MIGRAINE HEADACHE Last administered on 06/18/17 03:05; Start 06/17/17 at 17:15 Atorvastatin Calcium (Lipitor) 40 mg QHS PO Last administered on 06/17/17 21:08 ; Start 06/17/17 at 21:00 Metoprolol Succinate (Toprol Xl) 25 mg DAILY PO ; Start 06/17/17 at 17:30; Stop 06/18/17 at 08:41; Status DC Nitroglycerin (Nitrostat) 0.4 mg PRN Q5MIN PRN SL pain; Start 06/17/17 at 17:30 Nicotine (Nicoderm Cq 21mg) 1 patch PRN DAILY PRN TD SMOKING CESSATION Last administered on 06/17/17 21:51; Start 06/17/17 at 21:30 Nicotine Polacrilex (Nicorette Gum) 1 each PRN Q1HR PRN BC SMOKING CESSATION; Start 06/17/17 at 21:30 Lisinopril (Prinivil) 20 mg 1X ONCE PO Last administered on 06/17/17 21:53; Start 06/17/17 at 21:45; Stop 06/17/17 at 21:46; Status DC Amlodipine Besylate (Norvasc) 10 mg 1X ONCE PO Last administered on 06/17/17 21:52; Start 06/17/17 at 21:45; Stop 06/17/17 at 21:46; Status DC Nicardipine HCl 50 mg/Sodium Chloride 270 ml @ 0 mls/hr CONT PRN IV SEE I/O RECORD; Start 06/18/17 at 01:15 Lisinopril (Prinivil) 10 mg DAILY PO Last administered on 06/18/17 09:43; Start 06/18/17 at 09:00 Cyclobenzaprine HCl (Flexeril) 10 mg 1X ONCE PO Last administered on 09:43; Start 06/18/17 at 09:30; Stop 06/18/17 at 09:32; Status DC Ketorolac Tromethamine (Toradol) 30 mg 1X ONCE IV ; Start 06/18/17 at 09:45; Stop 06/18/17 at 09:46 Active Scripts Active Reported Amoxicillin 875 Mg Tablet 875 Mg PO BID Atorvastatin Calcium 40 Mg Tablet 1 Tab PO DAILY Metoprolol Succinate ( Xl ) (Metoprolol Succinate) 25 Mg Tab.er.24h 1 Tab PO DAILY Nitrostat (Nitroglycerin) 0.4 Mg Tab.subl 1 Tab SL UD Ultram (Tramadol Hcl) 50 Mg Tablet 1-2 Tab PO Q8HRS Vitals/I & O Vital Sign - Last 24 Hours 06/17/17 06/17/17 06/17/17 06/17/17 10:47 11:15 11:29 11:45 Temp 97.7 97.7 Pulse 51 54 50 50 Resp 14 18 18 B/P (MAP) 199/100 (133) 239/112 (154) 214/123 223/117 (152) Pulse Ox 99 96 96 O2 Delivery Room Air Room Air Room Air 06/17/17 06/17/17 06/17/17 06/17/17 11:50 11:55 12:05 12:10 Pulse 54 58 59 65 Resp 20 20 20 18 B/P (MAP) 221/109 (146) 205/101 (135) 173/93 (119) 171/82 (111) Pulse Ox 97 97 97 97 O2 Delivery Room Air Room Air Room Air Room Air 06/17/17 06/17/17 06/17/17 06/17/17 12:20 12:32 12:34 12:36 Pulse 64 59 60 Resp 18 18 18 B/P (MAP) 136/78 (97) 127/67 (87) 132/69 (90) Pulse Ox 97 96 96 O2 Delivery Room Air Room Air Room Air 06/17/17 06/17/17 06/17/17 06/17/17 13:05 13:15 13:28 13:30 Temp 97.7 97.7 Pulse 52 50 50 B/P (MAP) 127/75 (92) 109/62 (78) 105/58 (74) Pulse Ox 96 96 96 98 O2 Delivery Room Air Room Air Room Air Room Air 06/17/17 06/17/17 06/17/17 06/17/17 13:32 13:45 14:30 15:00 Pulse 54 52 49 B/P (MAP) 109/64 (79) 122/70 (87) 112/61 (78) Pulse Ox 99 99 99 O2 Delivery Room Air Room Air Room Air Room Air 06/17/17 06/17/17 06/17/17 06/17/17 15:05 16:00 16:00 17:08 Temp 98.1 98.1 Pulse 50 58 B/P (MAP) 109/62 (78) 135/59 (84) Pulse Ox 96 99 99 O2 Delivery Room Air Room Air Room Air Room Air 06/17/17 06/17/17 06/17/17 06/17/17 18:09 19:00 20:00 20:00 Temp 98.2 98.2 Pulse 47 50 48 Resp 12 14 B/P (MAP) 120/65 (83) 127/61 (83) 145/74 (97) Pulse Ox 99 97 97 O2 Delivery Room Air Room Air Room Air Room Air 06/17/17 06/17/17 06/17/17 06/17/17 21:00 21:10 21:52 21:53 Pulse 48 57 57 Resp 14 16 B/P (MAP) 154/73 (100) 145/77 145/77 Pulse Ox 99 97 O2 Delivery Room Air Room Air 06/17/17 06/17/17 06/17/17 06/17/17 22:00 22:10 23:00 23:34 Pulse 48 46 Resp 14 14 14 16 B/P (MAP) 145/77 (99) 166/81 (109) Pulse Ox 98 98 99 98 O2 Delivery Room Air Room Air Room Air Room Air 06/18/17 06/18/17 06/18/17 06/18/17 00:00 00:04 00:05 01:00 Pulse 44 44 Resp 14 16 14 B/P (MAP) 173/91 (118) 190/97 (128) Pulse Ox 97 98 98 O2 Delivery Room Air Room Air Room Air Room Air 06/18/17 06/18/17 06/18/17 06/18/17 01:10 01:20 01:30 02:00 Pulse 52 54 56 54 Resp 14 14 14 14 B/P (MAP) 183/91 (121) 169/89 (115) 144/76 (98) 130/66 (87) Pulse Ox 98 98 98 96 O2 Delivery Room Air Room Air Room Air Room Air 06/18/17 06/18/17 06/18/17 06/18/17 02:59 03:00 03:30 03:45 Pulse 62 56 56 Resp 16 14 14 14 B/P (MAP) 140/84 (102) 117/66 (83) 112/62 (79) Pulse Ox 98 98 98 97 O2 Delivery Room Air Room Air Room Air Room Air 06/18/17 06/18/17 06/18/17 06/18/17 04:00 04:00 04:30 05:00 Temp 98.5 98.5 Pulse 52 52 58 Resp 14 14 14 B/P (MAP) 112/66 (81) 119/63 (81) 123/66 (85) Pulse Ox 97 98 98 O2 Delivery Room Air Room Air Room Air Room Air 06/18/17 06/18/17 06/18/17 06/18/17 05:30 06:00 06:22 06:31 Pulse 54 53 50 Resp 14 14 14 14 B/P (MAP) 114/63 (80) 126/67 (86) 137/77 (97) Pulse Ox 98 98 98 97 O2 Delivery Room Air Room Air Room Air Room Air 06/18/17 09:43 Pulse 57 B/P (MAP) 149/77 CARRIE PHILIP MD Jun 18, 2017 09:47
--- NOTE | 2017-06-18 10:03 | PDOC3 ---
Discharge Summary Visit Information Date of Admission: Jun 17, 2017 Date of Discharge: Jun 18, 2017 Admitting Diagnosis Comment: ACCELerated, malignant htn headache, LIKELY from CAFFEINE WITHDRAWAL Smoker Final Diagnosis Problems Medical Problems: (1) Malignant hypertension Status: Acute Brief Hospital Course Allergies Allergies Coded Allergies Type Severity Reaction Last Updated Verified No Known Drug Allergies 06/17/17 No Vital Signs Vital Signs Date Time Temp Pulse Resp B/P (MAP) Pulse Ox O2 Delivery O2 Flow Rate FiO2 06/18/17 09:43 57 149/77 06/18/17 08:00 Room Air 06/18/17 06:31 14 97 06/18/17 04:00 98.5 98.5 Lab Results Laboratory Tests Test 06/17/17 11:00 06/17/17 14:00 06/17/17 17:30 06/18/17 04:00 White Blood Count 11.1 x10^3/uL (4.0-11.0) 11.6 x10^3/uL (4.0-11.0) Red Blood Count 5.35 x10^6/uL (4.30-5.70) 5.16 x10^6/uL (4.30-5.70) Hemoglobin 15.6 g/dL (13.0-17.5) 15.2 g/dL (13.0-17.5) Hematocrit 47.4 % (39.0-53.0) 44.8 % (39.0-53.0) Mean Corpuscular Volume 89 fL (79-100) 87 fL (79-100) Mean Corpuscular Hemoglobin 29 pg (25-35) 29 pg (25-35) Mean Corpuscular Hemoglobin Concent 33 g/dL (31-37) 34 g/dL (31-37) Red Cell Distribution Width 14.1 % (11.5-14.5) 13.9 % (11.5-14.5) Platelet Count 226 x10^3/uL (140-400) 220 x10^3/uL (140-400) Neutrophils (%) (Auto) 71 % (31-73) 71 % (31-73) Lymphocytes (%) (Auto) 19 % (24-48) 19 % (24-48) Monocytes (%) (Auto) 8 % (0-9) 8 % (0-9) Eosinophils (%) (Auto) 1 % (0-3) 1 % (0-3) Basophils (%) (Auto) 1 % (0-3) 1 % (0-3) Neutrophils # (Auto) 7.9 x10^3uL (1.8-7.7) 8.3 x10^3uL (1.8-7.7) Lymphocytes # (Auto) 2.1 x10^3/uL (1.0-4.8) 2.2 x10^3/uL (1.0-4.8) Monocytes # (Auto) 0.9 x10^3/uL (0.0-1.1) 0.9 x10^3/uL (0.0-1.1) Eosinophils # (Auto) 0.1 x10^3/uL (0.0-0.7) 0.2 x10^3/uL (0.0-0.7) Basophils # (Auto) 0.1 x10^3/uL (0.0-0.2) 0.1 x10^3/uL (0.0-0.2) Sodium Level 144 mmol/L (136-145) 142 mmol/L (136-145) Potassium Level 4.6 mmol/L (3.5-5.1) 4.0 mmol/L (3.5-5.1) Chloride Level 106 mmol/L (98-107) 105 mmol/L (98-107) Carbon Dioxide Level 29 mmol/L (21-32) 26 mmol/L (21-32) Anion Gap 9 (6-14) 11 (6-14) Blood Urea Nitrogen 9 mg/dL (8-26) 9 mg/dL (8-26) Creatinine 1.0 mg/dL (0.7-1.3) 1.0 mg/dL (0.7-1.3) Estimated GFR (Cockcroft-Gault) 76.7 76.7 Glucose Level 102 mg/dL (70-99) 120 mg/dL (70-99) Calcium Level 9.2 mg/dL (8.5-10.1) 8.8 mg/dL (8.5-10.1) Total Bilirubin 0.2 mg/dL (0.2-1.0) Direct Bilirubin < 0.1 mg/dL (0.0-0.2) Aspartate Amino Transf (AST/SGOT) 20 U/L (15-37) Alanine Aminotransferase (ALT/SGPT) 32 U/L (16-63) Alkaline Phosphatase 102 U/L (46-116) Troponin I Quantitative < 0.017 ng/mL (0.000-0.055) < 0.017 ng/mL (0.000-0.055) < 0.017 ng/mL (0.000-0.055) IF-Cde-H-Type Natriuretic Peptide 245 pg/mL (0-124) Total Protein 7.2 g/dL (6.4-8.2) Albumin 3.5 g/dL (3.4-5.0) Thyroid Stimulating Hormone (TSH) 2.011 uIU/mL (0.358-3.74) Laboratory Tests Test 06/17/17 11:00 06/17/17 14:00 06/17/17 17:30 06/18/17 04:00 White Blood Count 11.1 x10^3/uL (4.0-11.0) 11.6 x10^3/uL (4.0-11.0) Red Blood Count 5.35 x10^6/uL (4.30-5.70) 5.16 x10^6/uL (4.30-5.70) Hemoglobin 15.6 g/dL (13.0-17.5) 15.2 g/dL (13.0-17.5) Hematocrit 47.4 % (39.0-53.0) 44.8 % (39.0-53.0) Mean Corpuscular Volume 89 fL (79-100) 87 fL (79-100) Mean Corpuscular Hemoglobin 29 pg (25-35) 29 pg (25-35) Mean Corpuscular Hemoglobin Concent 33 g/dL (31-37) 34 g/dL (31-37) Red Cell Distribution Width 14.1 % (11.5-14.5) 13.9 % (11.5-14.5) Platelet Count 226 x10^3/uL (140-400) 220 x10^3/uL (140-400) Neutrophils (%) (Auto) 71 % (31-73) 71 % (31-73) Lymphocytes (%) (Auto) 19 % (24-48) 19 % (24-48) Monocytes (%) (Auto) 8 % (0-9) 8 % (0-9) Eosinophils (%) (Auto) 1 % (0-3) 1 % (0-3) Basophils (%) (Auto) 1 % (0-3) 1 % (0-3) Neutrophils # (Auto) 7.9 x10^3uL (1.8-7.7) 8.3 x10^3uL (1.8-7.7) Lymphocytes # (Auto) 2.1 x10^3/uL (1.0-4.8) 2.2 x10^3/uL (1.0-4.8) Monocytes # (Auto) 0.9 x10^3/uL (0.0-1.1) 0.9 x10^3/uL (0.0-1.1) Eosinophils # (Auto) 0.1 x10^3/uL (0.0-0.7) 0.2 x10^3/uL (0.0-0.7) Basophils # (Auto) 0.1 x10^3/uL (0.0-0.2) 0.1 x10^3/uL (0.0-0.2) Sodium Level 144 mmol/L (136-145) 142 mmol/L (136-145) Potassium Level 4.6 mmol/L (3.5-5.1) 4.0 mmol/L (3.5-5.1) Chloride Level 106 mmol/L (98-107) 105 mmol/L (98-107) Carbon Dioxide Level 29 mmol/L (21-32) 26 mmol/L (21-32) Anion Gap 9 (6-14) 11 (6-14) Blood Urea Nitrogen 9 mg/dL (8-26) 9 mg/dL (8-26) Creatinine 1.0 mg/dL (0.7-1.3) 1.0 mg/dL (0.7-1.3) Estimated GFR (Cockcroft-Gault) 76.7 76.7 Glucose Level 102 mg/dL (70-99) 120 mg/dL (70-99) Calcium Level 9.2 mg/dL (8.5-10.1) 8.8 mg/dL (8.5-10.1) Total Bilirubin 0.2 mg/dL (0.2-1.0) Direct Bilirubin < 0.1 mg/dL (0.0-0.2) Aspartate Amino Transf (AST/SGOT) 20 U/L (15-37) Alanine Aminotransferase (ALT/SGPT) 32 U/L (16-63) Alkaline Phosphatase 102 U/L (46-116) Troponin I Quantitative < 0.017 ng/mL (0.000-0.055) < 0.017 ng/mL (0.000-0.055) < 0.017 ng/mL (0.000-0.055) XW-Sea-O-Type Natriuretic Peptide 245 pg/mL (0-124) Total Protein 7.2 g/dL (6.4-8.2) Albumin 3.5 g/dL (3.4-5.0) Thyroid Stimulating Hormone (TSH) 2.011 uIU/mL (0.358-3.74) Brief Hospital Course Mr. Mckeon is a 57 old Admitted for malignant hTN needing cardene gtt ICU overnight, HR 50s, HOme BB stopped by cards, started Lisinopril 20 qD. Ff up PCP for BP, COurse remarkable for headache no resolve with imitirex or NSAIDs, Discovered to drink lots of drinks with caffeine in it energy drinks etc, likely withdrawing from it,. COunselled re this and his smoking, 2 notes today Dw [facility] [employer] Pt seen and examined Discharge Information Condition at Discharge: Improved, Stable Follow Up: Weeks (PCP 4 weeks) Disposition/Orders: D/C to Home Scheduled Amoxicillin (Amoxicillin), 875 MG PO BID, (Reported) Atorvastatin Calcium (Atorvastatin Calcium), 1 TAB PO DAILY, (Reported) Metoprolol Succinate (Metoprolol Succinate ( Xl )), 1 TAB PO DAILY, (Reported) Nitroglycerin (Nitrostat), 1 TAB SL UD, (Reported) Tramadol Hcl (Ultram), 1-2 TAB PO Q8HRS, (Reported) CARRIE PHILIP MD Jun 18, 2017 10:03
[2017-06-18] MEDS ORDERED: ONDANSETRON PF 4 MG/2 ML VIAL. ONE (15:26)
[2017-06-18] MEDS: HYDROcodone/APAP 5/325MG 1 TAB TABLET PO PRN ×2 (15:28→21:00)
[2017-06-18] MEDS: diazePAM 2 MG TABLET PO PRN (15:28)
[2017-06-18] MEDS ORDERED: GADOBUTROL 10 MMOL/10 ML VIAL IV ONE (15:30)
--- NOTE | 2017-06-18 15:43 | PDOC2 ---
NEUROLOGY CONSULT Date of Admission Date of Admission Full Report Dictated DATE: 06/18/17 TIME: 15:41 Current Medications Current Medications Current Medications Clonidine HCl (Catapres) 0.2 mg 1X ONCE PO Last administered on 06/17/17 11:29 ; Start 06/17/17 at 11:15; Stop 06/17/17 at 11:20; Status DC Nicardipine HCl 50 mg/Sodium Chloride 270 ml @ 0 mls/hr CONT PRN IV SEE I/O RECORD Last administered on 06/17/17 12:33; Start 06/17/17 at 11:15; Stop at 17:15; Status DC Ondansetron HCl (Zofran) 4 mg PRN Q8HRS PRN IV NAUSEA/VOMITING Last administered on 06/18/17 15:28; Start 06/17/17 at 12:45; Stop 06/18/17 at 12:44 ; Status DC Morphine Sulfate 2 mg PRN Q2HR PRN IV PAIN SEVERE Last administered on 02:59; Start 06/17/17 at 13:15 Acetaminophen (Tylenol) 650 mg PRN Q6HRS PRN PO HEADACHE Last administered on 23:34; Start 06/17/17 at 13:15 Tramadol HCl (Ultram) 50 mg Q8HRS PO Last administered on 06/18/17 06:22; Start 06/17/17 at 15:10 Amoxicillin (Amoxil) 750 mg BID PO Last administered on 06/18/17 09:43; Start 06/17/17 at 15:30 Sumatriptan Succinate (Imitrex) 50 mg PRN Q2HR PRN PO MIGRAINE HEADACHE Last administered on 06/18/17 03:05; Start 06/17/17 at 17:15 Atorvastatin Calcium (Lipitor) 40 mg QHS PO Last administered on 06/17/17 21:08 ; Start 06/17/17 at 21:00 Metoprolol Succinate (Toprol Xl) 25 mg DAILY PO ; Start 06/17/17 at 17:30; Stop 06/18/17 at 08:41; Status DC Nitroglycerin (Nitrostat) 0.4 mg PRN Q5MIN PRN SL pain; Start 06/17/17 at 17:30 Nicotine (Nicoderm Cq 21mg) 1 patch PRN DAILY PRN TD SMOKING CESSATION Last administered on 06/17/17 21:51; Start 06/17/17 at 21:30 Nicotine Polacrilex (Nicorette Gum) 1 each PRN Q1HR PRN BC SMOKING CESSATION; Start 06/17/17 at 21:30 Lisinopril (Prinivil) 20 mg 1X ONCE PO Last administered on 06/17/17 21:53; Start 06/17/17 at 21:45; Stop 06/17/17 at 21:46; Status DC Amlodipine Besylate (Norvasc) 10 mg 1X ONCE PO Last administered on 06/17/17 21:52; Start 06/17/17 at 21:45; Stop 06/17/17 at 21:46; Status DC Nicardipine HCl 50 mg/Sodium Chloride 270 ml @ 0 mls/hr CONT PRN IV SEE I/O RECORD; Start 06/18/17 at 01:15 Lisinopril (Prinivil) 10 mg DAILY PO Last administered on 06/18/17 09:43; Start 06/18/17 at 09:00 Cyclobenzaprine HCl (Flexeril) 10 mg 1X ONCE PO Last administered on 09:43; Start 06/18/17 at 09:30; Stop 06/18/17 at 09:32; Status DC Ketorolac Tromethamine (Toradol) 30 mg 1X ONCE IV Last administered on 09:48; Start 06/18/17 at 09:45; Stop 06/18/17 at 09:46; Status DC Cyclobenzaprine HCl (Flexeril) 10 mg PRN Q6HRS PRN PO MUSCLE SPASMS; Start 07/25 at 09:45 Diazepam (Valium) 2 mg PRN TID PRN PO ANXIETY Last administered on 06/18/17 15 :28; Start 06/18/17 at 09:45 Acetaminophen/ Hydrocodone Bitart (Lortab 5/325) 2 tab PRN Q4HRS PRN PO PAIN Last administered on 06/18/17 15:28; Start 06/18/17 at 15:30 Ondansetron HCl (Zofran) 4 mg STK-MED ONCE .ROUTE ; Start 06/18/17 at 15:26; Stop 06/18/17 at 15:27; Status DC Gadobutrol (Gadavist) 10 mmol 1X ONCE IV ; Start 06/18/17 at 15:30; Stop at 15:31; Status DC Active Scripts Active Reported Amoxicillin 875 Mg Tablet 875 Mg PO BID Atorvastatin Calcium 40 Mg Tablet 1 Tab PO DAILY Metoprolol Succinate ( Xl ) (Metoprolol Succinate) 25 Mg Tab.er.24h 1 Tab PO DAILY Nitrostat (Nitroglycerin) 0.4 Mg Tab.subl 1 Tab SL UD Ultram (Tramadol Hcl) 50 Mg Tablet 1-2 Tab PO Q8HRS Allergies Allergies: Coded Allergies: No Known Drug Allergies (Unverified , 06/17/17) Vitals VITALS Vital Signs Date Time Temp Pulse Resp B/P (MAP) Pulse Ox O2 Delivery O2 Flow Rate FiO2 06/18/17 15:28 98 Room Air 06/18/17 13:07 58 18 155/73 (100) 06/18/17 08:00 98.6 98.6 Labs Labs Laboratory Tests Test 06/17/17 11:00 06/17/17 14:00 06/17/17 17:30 06/18/17 04:00 White Blood Count 11.1 x10^3/uL (4.0-11.0) 11.6 x10^3/uL (4.0-11.0) Red Blood Count 5.35 x10^6/uL (4.30-5.70) 5.16 x10^6/uL (4.30-5.70) Hemoglobin 15.6 g/dL (13.0-17.5) 15.2 g/dL (13.0-17.5) Hematocrit 47.4 % (39.0-53.0) 44.8 % (39.0-53.0) Mean Corpuscular Volume 89 fL (79-100) 87 fL (79-100) Mean Corpuscular Hemoglobin 29 pg (25-35) 29 pg (25-35) Mean Corpuscular Hemoglobin Concent 33 g/dL (31-37) 34 g/dL (31-37) Red Cell Distribution Width 14.1 % (11.5-14.5) 13.9 % (11.5-14.5) Platelet Count 226 x10^3/uL (140-400) 220 x10^3/uL (140-400) Neutrophils (%) (Auto) 71 % (31-73) 71 % (31-73) Lymphocytes (%) (Auto) 19 % (24-48) 19 % (24-48) Monocytes (%) (Auto) 8 % (0-9) 8 % (0-9) Eosinophils (%) (Auto) 1 % (0-3) 1 % (0-3) Basophils (%) (Auto) 1 % (0-3) 1 % (0-3) Neutrophils # (Auto) 7.9 x10^3uL (1.8-7.7) 8.3 x10^3uL (1.8-7.7) Lymphocytes # (Auto) 2.1 x10^3/uL (1.0-4.8) 2.2 x10^3/uL (1.0-4.8) Monocytes # (Auto) 0.9 x10^3/uL (0.0-1.1) 0.9 x10^3/uL (0.0-1.1) Eosinophils # (Auto) 0.1 x10^3/uL (0.0-0.7) 0.2 x10^3/uL (0.0-0.7) Basophils # (Auto) 0.1 x10^3/uL (0.0-0.2) 0.1 x10^3/uL (0.0-0.2) Sodium Level 144 mmol/L (136-145) 142 mmol/L (136-145) Potassium Level 4.6 mmol/L (3.5-5.1) 4.0 mmol/L (3.5-5.1) Chloride Level 106 mmol/L (98-107) 105 mmol/L (98-107) Carbon Dioxide Level 29 mmol/L (21-32) 26 mmol/L (21-32) Anion Gap 9 (6-14) 11 (6-14) Blood Urea Nitrogen 9 mg/dL (8-26) 9 mg/dL (8-26) Creatinine 1.0 mg/dL (0.7-1.3) 1.0 mg/dL (0.7-1.3) Estimated GFR (Cockcroft-Gault) 76.7 76.7 Glucose Level 102 mg/dL (70-99) 120 mg/dL (70-99) Calcium Level 9.2 mg/dL (8.5-10.1) 8.8 mg/dL (8.5-10.1) Total Bilirubin 0.2 mg/dL (0.2-1.0) Direct Bilirubin < 0.1 mg/dL (0.0-0.2) Aspartate Amino Transf (AST/SGOT) 20 U/L (15-37) Alanine Aminotransferase (ALT/SGPT) 32 U/L (16-63) Alkaline Phosphatase 102 U/L (46-116) Troponin I Quantitative < 0.017 ng/mL (0.000-0.055) < 0.017 ng/mL (0.000-0.055) < 0.017 ng/mL (0.000-0.055) MC-Uzj-[id number]-Type Natriuretic Peptide 245 pg/mL (0-124) Total Protein 7.2 g/dL (6.4-8.2) Albumin 3.5 g/dL (3.4-5.0) Thyroid Stimulating Hormone (TSH) 2.011 uIU/mL (0.358-3.74) Laboratory Tests Test 06/17/17 17:30 06/18/17 04:00 Troponin I Quantitative < 0.017 ng/mL (0.000-0.055) White Blood Count 11.6 x10^3/uL (4.0-11.0) Red Blood Count 5.16 x10^6/uL (4.30-5.70) Hemoglobin 15.2 g/dL (13.0-17.5) Hematocrit 44.8 % (39.0-53.0) Mean Corpuscular Volume 87 fL (79-100) Mean Corpuscular Hemoglobin 29 pg (25-35) Mean Corpuscular Hemoglobin Concent 34 g/dL (31-37) Red Cell Distribution Width 13.9 % (11.5-14.5) Platelet Count 220 x10^3/uL (140-400) Neutrophils (%) (Auto) 71 % (31-73) Lymphocytes (%) (Auto) 19 % (24-48) Monocytes (%) (Auto) 8 % (0-9) Eosinophils (%) (Auto) 1 % (0-3) Basophils (%) (Auto) 1 % (0-3) Neutrophils # (Auto) 8.3 x10^3uL (1.8-7.7) Lymphocytes # (Auto) 2.2 x10^3/uL (1.0-4.8) Monocytes # (Auto) 0.9 x10^3/uL (0.0-1.1) Eosinophils # (Auto) 0.2 x10^3/uL (0.0-0.7) Basophils # (Auto) 0.1 x10^3/uL (0.0-0.2) Sodium Level 142 mmol/L (136-145) Potassium Level 4.0 mmol/L (3.5-5.1) Chloride Level 105 mmol/L (98-107) Carbon Dioxide Level 26 mmol/L (21-32) Anion Gap 11 (6-14) Blood Urea Nitrogen 9 mg/dL (8-26) Creatinine 1.0 mg/dL (0.7-1.3) Estimated GFR (Cockcroft-Gault) 76.7 Glucose Level 120 mg/dL (70-99) Calcium Level 8.8 mg/dL (8.5-10.1) Assessment/Plan Assessment/Plan Augustin Mckeon is a pleasant 57-year-old man who had several days of headache prior to presentation to [facility]. He was found to be in hypertensive crisis which has been addressed medically. The headache however has not resolved. The neurologic examination was abnormal. He has evidence of a right lower quadrant visual field loss. He also has some hyperreflexia on the left side compared to the right. It's possible the hypertension affected the cerebral circulation causing a posterior reversible encephalopathy syndrome. It' s also possible he has suffered a stroke in the left parietal region which can cause a quadrant field loss. He may also have suffered a venous sinus thrombosis which would contribute to the headache and potentially stroke. I will arrange for further investigation with an MRI brain without contrast and an MRV of the intracranial veins with contrast. For now we can control the headaches symptomatically with oral narcotic analgesics. ROBSON MENARD MD Jun 18, 2017 15:43
[2017-06-18] MEDS ORDERED: hydrALAZINE 20 MG/ML VIAL. IVP PRN (17:15)
--- NOTE | 2017-06-18 17:32 | RAD ---
MR of the brain, 06/18/2017: History: Headaches Imaging of the brain was performed in sagittal, axial and coronal planes utilizing a variety of imaging sequences including T1-weighted, T2-weighted, FLAIR, diffusion-weighted and T2*gradient echo sequences. The ventricles are within normal limits in size. There is no shift of the midline structures. There is no evidence of acute intracranial hemorrhage or mass effect. There is a small area of abnormal signal involving primarily the cortex in the posterior occipital region on the left. This demonstrates increased signal on the FLAIR and T2-weighted sequences as well as restricted diffusion. There is a more subtle area of similar abnormal signal in the posterior right occipital lobe. No other areas of abnormal signal or restricted diffusion are seen in either cerebral hemisphere, the cerebellum or the brainstem. No abnormal extra-axial fluid collection or mass is seen. IMPRESSION: Small foci of abnormal signal in the posterior occipital lobes, left greater than right, as described above. While these may represent small infarcts related to the posterior circulation, the position and configuration does raise the possibility of posterior reversible encephalopathy syndrome (PRES). Note: The findings were called to the patient's nurse in the ICU at 5:30 PM on 06/18/2017.
[2017-06-18] MEDS: ASPIRIN ENTERIC COATED 81 MG TABLET.DR. PO SCH (18:57)
[2017-06-18] MEDS: NICOTINE 21MG PATCH. TD PRN (20:57)
[2017-06-18] MEDS: ATORVASTATIN CALCIUM 40 MG TABLET. PO SCH (20:59)
[2017-06-18] MEDS: CYCLOBENZAPRINE 10 MG TABLET. PO PRN (21:01)
--- NOTE | 2017-06-18 23:31 | CONS ---
DATE OF CONSULTATION: REFERRING PHYSICIAN: Janis Quiros M.D. REASON FOR CONSULTATION: Intractable headache and hypertensive crisis. HISTORY OF PRESENT ILLNESS: The patient is a very pleasant 57-year-old man who was admitted to [facility] with severe headache. He had marked elevation in his blood pressure in the 230 systolic range. He has been in the Intensive Care Unit trying to control his blood pressure. He has had some difficulty with blurry vision. The headache has been holocranial and in the back. He has had neck pain associated. He has had a prior history of neck pain, but this seems worse. He has chronic lower back pain as well, but this is no worse. This has not been associated with any fever or rash. It has not affected his cognition adversely. He has been able to eat and swallow. He is getting ready for discharge as the blood pressures are much better controlled. Yet the headache persists despite efforts at trying to control this. PAST MEDICAL HISTORY: 1. Hypertension. 2. Hypercholesterolemia. 3. Coronary artery disease, status post bypass surgery. ALLERGIES: No known allergies to drugs. MEDICATIONS PRIOR TO ADMISSION: Amoxicillin 875 mg twice a day, which was recently started for sinus infection, atorvastatin 40 mg, metoprolol, nitroglycerin sublingual as needed and tramadol 50-100 mg every 8 hours. FAMILY HISTORY: Pertinent for high blood pressure. SOCIAL HISTORY: He is and has 3 children. He has a number of grandchildren. He works discovering [employer] for the [employer]. He has a very active job. He smokes a pack of cigarettes per day. He does not drink alcohol or use recreational drugs. REVIEW OF SYSTEMS: He has a severe holocranial headache. He has had some blurry vision. He has had no change of cognitions, speech or swallow. There has been no change of hearing. He has had some sinus pressure. He has been able to swallow without choking. He has not had shortness of breath, chest or abdominal pain. He has some neck pain, back pain and hip pain. There has been no fever or rash. Does not have any gastrointestinal complaints. At one time, it felt like he was not emptying his bladder, but this has improved. He does not complain of any numbness or weakness. He has had some depression at times. He is not suicidal. He does not have swelling, easy bruising or excessive bleeding. He does not have any endocrine complaints. PHYSICAL EXAMINATION: VITAL SIGNS: The blood pressure at its worst was 239/112. The most recent blood pressure was 155/73, pulse 58, respirations 18, temperature 98.6 degrees Fahrenheit. Oximetry was 98% on room air. His weight was 197.4 pounds with height of 73 inches with a calculated body mass index of 26. GENERAL: He was alert, awake and cooperative. Speech was fluent and clear. He had a good fund of recent and remote knowledge. Attention and concentration were intact. He appeared well groomed and well nourished. He was well oriented. NEUROLOGIC: Examination of the cranial nerves revealed visual duong were not full to confrontation. With both binocular and monocular testing, there was a right lower quadrant visual field loss. Extraocular movements were intact. The eyes were conjugate. Pursuit movements were smooth, and saccadic eye movements were without dysmetria. Pupils were 4 mm and reacted. Funduscopic exam did not reveal papilledema, exudate or hemorrhage. The nasal borders were somewhat indistinct, whereas the temporal borders were sharper. I did not see any definite exudate, and there was no hemorrhage. Facial sensation was intact. The muscles of mastication and facial expression were powerful symmetrically. Hearing was intact to finger rub. The palate arched symmetrically, and the tongue was midline with full range of motion. Sternocleidomastoid and trapezius were powerful. Muscle bulk and tone were normal. There was no arm or leg drift. There was no asterixis. The power was full and symmetric in the upper and lower extremities. Reflexes were slightly brisker in the left upper and lower extremity than compared to the right. The toes were downgoing bilaterally. Coordination testing with [id number], [id number], fine motor and rapid alternating movements was well performed. The sensory exam was intact to pain, light touch, proprioception, graphesthesia, cold thermal and vibration. There was no extinction to double simultaneous stimulation. Gait was normal base and was steady. He is able to heel and toe walk. The Romberg stance was negative. Auscultation of the carotid arteries did not reveal a bruit. Heart rhythm was regular without a murmur. Peripheral pulses were symmetric. There was no edema or cyanosis of the extremities. REVIEW OF LABORATORY DATA: CBC revealed a normal hemoglobin, hematocrit and platelet count, but white count was elevated to 11.6. Electrolytes were normal. Glucose was elevated at 120. BUN and creatinine were normal with the GFR calculated at 76.7. Calcium was normal. Troponin was not elevated. TSH was normal. BNP was elevated yesterday to 245. The liver enzymes were not elevated. IMAGING: A CT scan of the brain was performed yesterday without contrast and revealed no acute process. Chest x-ray revealed no acute cardiopulmonary process. IMPRESSION: The patient is a very pleasant 57-year-old man who presented with hypertensive crisis and intractable headache. The headache preceded his admission by several days. The neurologic exam was abnormal revealing evidence of a right lower quadrant visual field loss. There may be some borderline papilledema as well. He has some asymmetry of reflex with the left-sided reflexes being slightly brisker than the right. I am concerned that there may be a stroke, which is leading to some of the visual field loss. It is also possible this is posterior reversible encephalopathy syndrome, which can affect vision as well. Another possibility especially with a headache would be a venous sinus thrombosis, which has led to a stroke. RECOMMENDATIONS: I will recommend an MRI brain be performed without contrast to look for evidence for stroke or PRES as well as an MRV of the intracranial veins to look for evidence of a venous sinus thrombosis. If these studies were negative, he could potentially be dismissed with pain medications. I appreciate being involved in his care. If these studies were negative, then we would need to investigate why he has a visual field loss and may need to look into papilledema. A lumbar puncture may need to be performed to evaluate for elevated intracranial pressure. I appreciate being involved in his care. ROBSON MENARD MD DR: DELICIA/shelbie JOB#: [id number] / [id number] JANIS Silva MD, JAY MD
[2017-06-19 03:50] VITALS: BP 136/74
--- NOTE | 2017-06-19 04:11 | ACF ---
Admission Forms Criteria HEADACHES Clinical Indications for Admission to Inpatient Care (Rebuck/check or initial the applicable condition/criteria): Admission is indicated for 1 or more of the following(1)(2)(3)(4)(5): I. Unruptured but threatening aneurysm or vascular malformation II. Venous sinus thrombosis III. Increased intracranial pressure IV. Cerebral spinal fluid leak V Medication-overuse headachethat has failed all outpatient management options(6 )(7)(8) . Vasculitis (eg, giant cell (temporal) arteritis, central nervous system vasculitis) requiring intravenous corticosteroids, intravenous antithrombotic therapy, or inpatient monitoring (e.g., visual symptomsor findings, other ischemic manifestations)[A](9) VII. Severe (new) neurologic findings requiring inpatient care as indicated by 1 or more of the following(10)(11)(12) a) Papilledema b) Cerebral edema c) mass effect on CT scan d) Cerebral spinal fluid leak (13) e) Hydrocephalus(14)(15) f) Uncontrolled seizures(9)(16) [X] VIII Inpatient admission required rather than observational care (See Headaches: Observation Care as appropriate) because of 1 or more of the following(17): a) Severe pain requiring acute inpatient management b) Altered mental status that is severe or persistent c) Vomiting that is severe or persistent d) Dehydration that is severe or persistent e) New-onset focal neurologic deficit that is severe or persistent (eg, does not resolve during observation care) (18) [X] f) Hypertension requiring inpatient treatment g) IV fluid required rather than oral rehydration to replace significant ongoing (eg, for greater than 24 hours) losses (greater than 200 ml/hr or 3L/m2 per day) h) Cerebral bleeding, hydrocephalus, or vasospasm monitoring (19) i) Increased intracranial pressure or cerebral edema monitoring j) Other condition treatment or monitoring requiring inpatient admission Extended stay beyond goal length of stay may be needed for (36)(37): a) Intractable migraine b) Giant cell (temporal) arteritis with visual or other ischemic signs or symptoms(1) c) Subarachnoid or intracranial hemorrhage d) Malignant hypertension e) Detoxification from drug withdrawal in medication-overuse headache (6)(8) The original [facility] [employer] content created by Maikol Cheema has been revised. The portions of the content which have been revised are identified through the use of italic text or in bold, and [facility] has neither reviewed nor approved the modified material.All other unmodified content is copyright [facility]. Please see references footnoted in the original [facility] edition 2016 Admission Criteria Met?: Yes REINA NEGRON Jun 19, 2017 04:11
[2017-06-19] MEDS: CYCLOBENZAPRINE 10 MG TABLET. PO PRN ×2 (05:01→11:31)
[2017-06-19] MEDS: HYDROcodone/APAP 5/325MG 1 TAB TABLET PO PRN ×2 (05:01→09:18)
[2017-06-19] MEDS: traMADol 50 MG TABLET PO SCH ×2 (06:00→13:44)
[2017-06-19 07:00] VITALS: BP 155/79
--- NOTE | 2017-06-19 07:34 | RAD ---
Carotid ultrasound, 06/19/2017: History: Stroke Duplex evaluation of the carotid arteries in neck was performed including grayscale, color-flow and spectral Doppler analysis. There is minimal intimal thickening in both common carotid arteries. There is moderate atherosclerotic plaquing at both carotid bifurcations with partial calcification. The peak systolic velocity in the right internal carotid artery is 130 cm/s with an end-diastolic velocity of 61 cm/s. The internal carotid to common carotid artery ratio is 2.1. The Doppler findings suggest narrowing in the 50-70% diameter range. Similarly on the left the peak systolic velocity in the internal carotid artery is 125 cm/s with an end-diastolic velocity of 45 cm/s. Internal carotid to common carotid artery ratio is 2.4. These Doppler findings also suggest narrowing in the 50-70% diameter range. Antegrade flow is present in both vertebral arteries in the neck. IMPRESSION: Moderate atherosclerotic plaquing at both carotid bifurcations with underlying luminal narrowing in the 50-70% diameter range. Note: Stenosis calculations for CTA, MRA and conventional angiography are based upon determination of the distal ICA diameter in accordance with the NASCET methodology. Stenosis calculations for Doppler studies are derived from validated velocity criteria which are known to correlate with NASCET methodology of determining stenosis.
--- NOTE | 2017-06-19 08:24 | RAD ---
INDICATION: Stroke. TECHNIQUE: Source images and maximum intensity projection reformatted images are provided. The exam was performed before and after administration of 10 mL of intravenous Gadavist without complication. Comparison is an MRI brain from the same day. FINDINGS: No thrombus within the superior sagittal sinus or transverse sinuses is apparent. No deep cerebral vein thrombus is apparent. IMPRESSION: Normal MR venogram head. Electronically signed by: Omega Umanzor MD (06/19/2017 8:21 AM) [id number]
[2017-06-19] MEDS: AMOXICILLIN 250 MG CAPSULE. PO SCH (09:14)
[2017-06-19] MEDS: LISINOPRIL 10 MG TABLET PO SCH (09:15)
[2017-06-19] MEDS: ASPIRIN ENTERIC COATED 81 MG TABLET.DR. PO SCH (09:15)
--- NOTE | 2017-06-19 10:06 | PDOC ---
Provider Note Provider Note DISCHARGE SUMMARY Site Code: [facility] Name: PRESTON MCKEON Acct: [id number] MR: [id number] : 1960 Visit Date: 06/17/17 [facility] [address] [place] [address] DISCHARGE SUMMARY PATIENT: PRESTON MCKEON ACCOUNT: [id number] : 1960 LOC: 1 [facility] AGE: 57 SEX: M STATUS: ADM IN LOCATION: 1 [facility] Discharge Summary Visit Information Date of Admission: Jun 17, 2017 Date of Discharge: Jun 19 2017 Admitting Diagnosis Comment: ACCELerated, malignant htn headache, LIKELY from CAFFEINE WITHDRAWAL Smoker Final Diagnosis Problems Medical Problems: (1) Malignant hypertension Status: Acute Brief Hospital Course Allergies Allergies Coded Allergies Type Severity Reaction Last Updated Verified No Known Drug Allergies 06/17/17 No Vital Signs Vital Signs Date Time Temp Pulse Resp B/P (MAP) Pulse Ox O2 Delivery O2 Flow Rate FiO2 06/18/17 09:43 57 149/77 06/18/17 08:00 Room Air 06/18/17 06:31 14 97 06/18/17 04:00 98.5 98.5 Lab Results Laboratory Tests Test 06/17/17 11:00 06/17/17 14:00 06/17/17 17:30 06/18/17 04:00 White Blood Count 11.1 x10^3/uL (4.0-11.0) 11.6 x10^3/uL (4.0-11.0) Red Blood Count 5.35 x10^6/uL (4.30-5.70) 5.16 x10^6/uL (4.30-5.70) Hemoglobin 15.6 g/dL (13.0-17.5) 15.2 g/dL (13.0-17.5) Hematocrit 47.4 % (39.0-53.0) 44.8 % (39.0-53.0) Mean Corpuscular Volume 89 fL (79-100) 87 fL (79-100) Mean Corpuscular Hemoglobin 29 pg (25-35) 29 pg (25-35) Mean Corpuscular Hemoglobin Concent 33 g/dL (31-37) 34 g/dL (31-37) Red Cell Distribution Width 14.1 % (11.5-14.5) 13.9 % (11.5-14.5) Platelet Count 226 x10^3/uL (140-400) 220 x10^3/uL (140-400) Neutrophils (%) (Auto) 71 % (31-73) 71 % (31-73) Lymphocytes (%) (Auto) 19 % (24-48) 19 % (24-48) Monocytes (%) (Auto) 8 % (0-9) 8 % (0-9) Eosinophils (%) (Auto) 1 % (0-3) 1 % (0-3) Basophils (%) (Auto) 1 % (0-3) 1 % (0-3) Neutrophils # (Auto) 7.9 x10^3uL (1.8-7.7) 8.3 x10^3uL (1.8-7.7) Lymphocytes # (Auto) 2.1 x10^3/uL (1.0-4.8) 2.2 x10^3/uL (1.0-4.8) Monocytes # (Auto) 0.9 x10^3/uL (0.0-1.1) 0.9 x10^3/uL (0.0-1.1) Eosinophils # (Auto) 0.1 x10^3/uL (0.0-0.7) 0.2 x10^3/uL (0.0-0.7) Basophils # (Auto) 0.1 x10^3/uL (0.0-0.2) 0.1 x10^3/uL (0.0-0.2) Sodium Level 144 mmol/L (136-145) 142 mmol/L (136-145) Potassium Level 4.6 mmol/L (3.5-5.1) 4.0 mmol/L (3.5-5.1) Chloride Level 106 mmol/L (98-107) 105 mmol/L (98-107) Carbon Dioxide Level 29 mmol/L (21-32) 26 mmol/L (21-32) Anion Gap 9 (6-14) 11 (6-14) Blood Urea Nitrogen 9 mg/dL (8-26) 9 mg/dL (8-26) Creatinine 1.0 mg/dL (0.7-1.3) 1.0 mg/dL (0.7-1.3) Estimated GFR (Cockcroft-Gault) 76.7 76.7 Glucose Level 102 mg/dL (70-99) 120 mg/dL (70-99) Calcium Level 9.2 mg/dL (8.5-10.1) 8.8 mg/dL (8.5-10.1) Total Bilirubin 0.2 mg/dL (0.2-1.0) Direct Bilirubin < 0.1 mg/dL (0.0-0.2) Aspartate Amino Transf (AST/SGOT) 20 U/L (15-37) Alanine Aminotransferase (ALT/SGPT) 32 U/L (16-63) Alkaline Phosphatase 102 U/L (46-116) Troponin I Quantitative < 0.017 ng/mL (0.000-0.055) < 0.017 ng/mL (0.000-0.055) < 0.017 ng/mL (0.000-0.055) XO-Xtq-F-Type Natriuretic Peptide 245 pg/mL (0-124) Total Protein 7.2 g/dL (6.4-8.2) Albumin 3.5 g/dL (3.4-5.0) Thyroid Stimulating Hormone (TSH) 2.011 uIU/mL (0.358-3.74) Laboratory Tests Test 06/17/17 11:00 06/17/17 14:00 06/17/17 17:30 06/18/17 04:00 White Blood Count 11.1 x10^3/uL (4.0-11.0) 11.6 x10^3/uL (4.0-11.0) Red Blood Count 5.35 x10^6/uL (4.30-5.70) 5.16 x10^6/uL (4.30-5.70) Hemoglobin 15.6 g/dL (13.0-17.5) 15.2 g/dL (13.0-17.5) Hematocrit 47.4 % (39.0-53.0) 44.8 % (39.0-53.0) Mean Corpuscular Volume 89 fL (79-100) 87 fL (79-100) Mean Corpuscular Hemoglobin 29 pg (25-35) 29 pg (25-35) Mean Corpuscular Hemoglobin Concent 33 g/dL (31-37) 34 g/dL (31-37) Red Cell Distribution Width 14.1 % (11.5-14.5) 13.9 % (11.5-14.5) Platelet Count 226 x10^3/uL (140-400) 220 x10^3/uL (140-400) Neutrophils (%) (Auto) 71 % (31-73) 71 % (31-73) Lymphocytes (%) (Auto) 19 % (24-48) 19 % (24-48) Monocytes (%) (Auto) 8 % (0-9) 8 % (0-9) Eosinophils (%) (Auto) 1 % (0-3) 1 % (0-3) Basophils (%) (Auto) 1 % (0-3) 1 % (0-3) Neutrophils # (Auto) 7.9 x10^3uL (1.8-7.7) 8.3 x10^3uL (1.8-7.7) Lymphocytes # (Auto) 2.1 x10^3/uL (1.0-4.8) 2.2 x10^3/uL (1.0-4.8) Monocytes # (Auto) 0.9 x10^3/uL (0.0-1.1) 0.9 x10^3/uL (0.0-1.1) Eosinophils # (Auto) 0.1 x10^3/uL (0.0-0.7) 0.2 x10^3/uL (0.0-0.7) Basophils # (Auto) 0.1 x10^3/uL (0.0-0.2) 0.1 x10^3/uL (0.0-0.2) Sodium Level 144 mmol/L (136-145) 142 mmol/L (136-145) Potassium Level 4.6 mmol/L (3.5-5.1) 4.0 mmol/L (3.5-5.1) Chloride Level 106 mmol/L (98-107) 105 mmol/L (98-107) Carbon Dioxide Level 29 mmol/L (21-32) 26 mmol/L (21-32) Anion Gap 9 (6-14) 11 (6-14) Blood Urea Nitrogen 9 mg/dL (8-26) 9 mg/dL (8-26) Creatinine 1.0 mg/dL (0.7-1.3) 1.0 mg/dL (0.7-1.3) Estimated GFR (Cockcroft-Gault) 76.7 76.7 Glucose Level 102 mg/dL (70-99) 120 mg/dL (70-99) Calcium Level 9.2 mg/dL (8.5-10.1) 8.8 mg/dL (8.5-10.1) Total Bilirubin 0.2 mg/dL (0.2-1.0) Direct Bilirubin < 0.1 mg/dL (0.0-0.2) Aspartate Amino Transf (AST/SGOT) 20 U/L (15-37) Alanine Aminotransferase (ALT/SGPT) 32 U/L (16-63) Alkaline Phosphatase 102 U/L (46-116) Troponin I Quantitative < 0.017 ng/mL (0.000-0.055) < 0.017 ng/mL (0.000-0.055) < 0.017 ng/mL (0.000-0.055) JL-Ras-L-Type Natriuretic Peptide 245 pg/mL (0-124) Total Protein 7.2 g/dL (6.4-8.2) Albumin 3.5 g/dL (3.4-5.0) Thyroid Stimulating Hormone (TSH) 2.011 uIU/mL (0.358-3.74) Brief Hospital Course Mr. Mckeon is a 57 old Admitted for malignant hTN needing cardene gtt ICU overnight, HR 50s, HOme BB stopped by cards, started Lisinopril 20 qD. Ff up PCP for BP, COurse remarkable for headache no resolve with imitirex or NSAIDs, Discovered to drink lots of drinks with caffeine in it energy drinks etc, likely withdrawing from it,. 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 Discharge Information Condition at Discharge: Improved, Stable Follow Up: Weeks (PCP 4 weeks) Disposition/Orders: D/C to Home Scheduled Amoxicillin (Amoxicillin), 875 MG PO BID, (Reported) Atorvastatin Calcium (Atorvastatin Calcium), 1 TAB PO DAILY, (Reported) Metoprolol Succinate (Metoprolol Succinate ( Xl )), 1 TAB PO DAILY, (Reported) Nitroglycerin (Nitrostat), 1 TAB SL UD, (Reported) Tramadol Hcl (Ultram), 1-2 TAB PO Q8HRS, (Reported) CARRIE PHILIP MD Jun 18, 2017 10:03 DICTATED BY: CARRIE PHILIP MD 06/18/17 1003 SIGNED BY: CARRIE PHILIP MD 06/19/17 1003 cc: DYLON NICHOLS MD; IVONE MERCHANT MD; CARRIE PHILIP MD ~ ADDENDUM TO DC. PT WAITED FOR NEURO, MRI DONE SHOWED PRES SYNDROME MR VENOGRAM NORMAL ASA CONTINUED ADVISED CONTROL BP CAROTIDS SHOW 50-70% ATHEROSCLEROTIC BUILD UP HEADACHE BETTER WITH LOTAB AND FLEXERIL TREQUESTS CHANTIX RX AND PHENERGAN ALL DONE AND IN CHART AWAIT CARDS AND NEURO ROUNDS CARRIE PHILIP MD Jun 19, 2017 10:06
[2017-06-19 11:00] VITALS: BP 172/83
[2017-06-19] MEDS: NICOTINE 21MG PATCH. TD PRN (11:26)
[2017-06-19] MEDS: SUMAtriptan SUCCINATE 25 MG TABLET PO PRN (11:31)
[2017-06-19 12:34] LABS: BARBITURATES NEG (NEG); BENZODIAZEPINES NEG (NEG); CANNABINOIDS NEG (NEG); COCAINE NEG (NEG); METHADONE NEG (NEG); OPIATES POS (NEG); PHENCYCLIDINE NEG (NEG)
--- NOTE | 2017-06-19 13:35 | CARD ---
APPROVED REPORT EXAM: Two-dimensional and M-mode echocardiogram with Doppler and color Doppler. Other Information Quality : Good INDICATION CVA/TIA Echo Enhancing Agent Agent/Amount Used: Agitated Saline 8mL 2D DIMENSIONS RVDd3.1 (2.9-3.5cm)Left Atrium(2D)4.6 (1.6-4.0cm) IVSd1.1 (0.7-1.1cm)Aortic Root(2D)3.2 (2.0-3.7cm) LVDd4.9 (3.9-5.9cm)LVOT Diameter2.0 (1.8-2.4cm) PWd1.4 (0.7-1.1cm)LVDs2.6 (2.5-4.0cm) FS (%) 30.0 %SV88.1 ml LVEF(%)60.0 (>50%) M-Mode DIMENSIONS Aortic Cusp Exc1.77 (1.5-2.0cm) Aortic Valve AoV Peak Bradley.214.5cm/sAoV VTI40.5cm AO Peak GR.18.4mmHgLVOT VTI 23.75cm AO Mean GR.9mmHg Mitral Valve MV E Hssfzdkc623.9cm/sMV DECEL [id number] MV A Kxfpksbh64.9cm/sE/A Ratio1.4 TDI Lateral E' P. V11.78cm/sMedial E' P. V10.75cm/s E/Lateral E'8.7E/Medial E'9.5 Tricuspid Valve TR P. Cxmerszl554qf/sRAP YPBIAAYC2keMn TR Peak Gr.34zrXsDPMI85vhMo Pulmonary Vein S1 Vcelxhiq14.6cm/sS2 Ppnskquy36.97cm/s D2 Wocvpmjl61.0cm/s LEFT VENTRICLE The left ventricle is normal size. There is normal left ventricular wall thickness. The left ventricu lar systolic function is normal and the ejection fraction is within normal range. The Ejection Fracti on is 60-65%. There is normal LV segmental wall motion. Transmitral Doppler flow pattern is Grade II- pseudonormal filling dynamics. RIGHT VENTRICLE The right ventricle is normal size. The right ventricular systolic function is normal. ATRIA The left atrium size is normal. The right atrium size is normal. The interatrial septum is intact wit h no evidence for an atrial septal defect or patent foramen ovale as noted on 2-D or Doppler imaging. Injection of bubbles documented no interatrial shunt. AORTIC VALVE The aortic valve is thickened and displays decreased opening. Doppler and Color Flow revealed no sign ificant aortic regurgitation. Minimal aortic stenosis with a calculated aortic valve area of 1.9 cm2 with maximum pressure gradient of 18 mmHg and mean pressure gradient of 9 mmHg. MITRAL VALVE The mitral valve is calcified but opens well. There is no evidence of mitral valve prolapse. There is no mitral valve stenosis. Doppler and Color-flow revealed trace mitral regurgitation. TRICUSPID VALVE The tricuspid valve is normal in structure and function. Doppler and Color Flow revealed trace tricus pid regurgitation. The PA pressure was estimated at 34 mmHg. There is no tricuspid valve stenosis. PULMONIC VALVE The pulmonary valve is normal in structure and function. Doppler and Color Flow revealed no significa nt pulmonic valvular regurgitation. There is no pulmonic valvular stenosis. GREAT VESSELS The aortic root is normal in size. The ascending aorta is normal in size. The IVC is normal in size a nd collapses >50% with inspiration. PERICARDIAL EFFUSION There is no evidence of significant pericardial effusion. Critical Notification Critical Value: No <Conclusion> The left ventricle is normal size. The left ventricular systolic function is normal and the ejection fraction is within normal range. The Ejection Fraction is 60-65%. The interatrial septum is intact with no evidence for an atrial septal defect or patent foramen ovale as noted on 2-D or Doppler imaging. Injection of bubbles documented no interatrial shunt. Minimal aortic stenosis with a calculated aortic valve area of 1.9 cm2 with maximum pressure gradien t of 18 mmHg and mean pressure gradient of 9 mmHg. Doppler and Color Flow revealed no significant aortic regurgitation. Doppler and Color-flow revealed trace mitral regurgitation. Doppler and Color Flow revealed trace tricuspid regurgitation. The PA pressure was estimated at 34 mmHg.
[2017-06-19] MEDS: diazePAM 2 MG TABLET PO PRN (13:43)
--- NOTE | 2017-06-19 14:03 | PDOC2 ---
CONSULT Date of Consult Date of Consult DATE: 06/19/17 TIME: 13:32 Reason for Consult Reason for Consult: Bilateral carotid stenosis Identification/Chief Complaint Chief Complaint Headache, blurred vision Source Source: Chart review, Patient History of Present Illness Reason for Visit: 57 year old male admitted with headache for three days, blurred vision, and hypertensive crisis. The patient has a history of CABG, hypertension, hyperlipidemia, tobaccoism and chronic back pain. The patient denies any stroke like symptoms or claudication. The patient also states he has had improvement in his vision and headache. Carotid Ultrasound demonstrates CCA/ICA ration on the right of 2.1 and left 2.4 (50-70%). Past Medical History Cardiovascular: CAD, HTN Pulmonary: No pertinent hx CENTRAL NERVOUS SYSTEM: Other (headache, blurred vision) Hepatobiliary: No pertinent hx Psych: No pertinent hx Musculoskeletal: low back pain Rheumatologic: No pertinent hx Infectious disease: No pertinent hx Endocrine: No pertinent hx Dermatology: No pertinent hx Past Surgical History Past Surgical History: CABG Family History Family History: Hypertension Social History Social History excessive caffeine use 1 pack per day ALCOHOL: none Drugs: None Lives: with Family Current Problem List Problem List Problems Medical Problems: (1) Malignant hypertension Status: Acute Current Medications Current Medications Current Medications Clonidine HCl (Catapres) 0.2 mg 1X ONCE PO Last administered on 06/17/17 11:29 ; Start 06/17/17 at 11:15; Stop 06/17/17 at 11:20; Status DC Nicardipine HCl 50 mg/Sodium Chloride 270 ml @ 0 mls/hr CONT PRN IV SEE I/O RECORD Last administered on 06/17/17 12:33; Start 06/17/17 at 11:15; Stop at 17:15; Status DC Ondansetron HCl (Zofran) 4 mg PRN Q8HRS PRN IV NAUSEA/VOMITING Last administered on 06/18/17 15:28; Start 06/17/17 at 12:45; Stop 06/18/17 at 12:44 ; Status DC Morphine Sulfate 2 mg PRN Q2HR PRN IV PAIN SEVERE Last administered on 18:54; Start 06/17/17 at 13:15 Acetaminophen (Tylenol) 650 mg PRN Q6HRS PRN PO HEADACHE Last administered on 23:34; Start 06/17/17 at 13:15 Tramadol HCl (Ultram) 50 mg Q8HRS PO Last administered on 06/18/17 06:22; Start 06/17/17 at 15:10 Amoxicillin (Amoxil) 750 mg BID PO Last administered on 06/19/17 09:14; Start 06/17/17 at 15:30 Sumatriptan Succinate (Imitrex) 50 mg PRN Q2HR PRN PO MIGRAINE HEADACHE Last administered on 06/19/17 11:31; Start 06/17/17 at 17:15 Atorvastatin Calcium (Lipitor) 40 mg QHS PO Last administered on 06/18/17 20: 59; Start 06/17/17 at 21:00 Metoprolol Succinate (Toprol Xl) 25 mg DAILY PO ; Start 06/17/17 at 17:30; Stop 06/18/17 at 08:41; Status DC Nitroglycerin (Nitrostat) 0.4 mg PRN Q5MIN PRN SL pain; Start 06/17/17 at 17:30 Nicotine (Nicoderm Cq 21mg) 1 patch PRN DAILY PRN TD SMOKING CESSATION Last administered on 06/19/17 11:26; Start 06/17/17 at 21:30 Nicotine Polacrilex (Nicorette Gum) 1 each PRN Q1HR PRN BC SMOKING CESSATION; Start 06/17/17 at 21:30 Lisinopril (Prinivil) 20 mg 1X ONCE PO Last administered on 06/17/17 21:53; Start 06/17/17 at 21:45; Stop 06/17/17 at 21:46; Status DC Amlodipine Besylate (Norvasc) 10 mg 1X ONCE PO Last administered on 06/17/17 21:52; Start 06/17/17 at 21:45; Stop 06/17/17 at 21:46; Status DC Nicardipine HCl 50 mg/Sodium Chloride 270 ml @ 0 mls/hr CONT PRN IV SEE I/O RECORD; Start 06/18/17 at 01:15 Lisinopril (Prinivil) 10 mg DAILY PO Last administered on 06/19/17 09:15; Start 06/18/17 at 09:00 Cyclobenzaprine HCl (Flexeril) 10 mg 1X ONCE PO Last administered on 09:43; Start 06/18/17 at 09:30; Stop 06/18/17 at 09:32; Status DC Ketorolac Tromethamine (Toradol) 30 mg 1X ONCE IV Last administered on 09:48; Start 06/18/17 at 09:45; Stop 06/18/17 at 09:46; Status DC Cyclobenzaprine HCl (Flexeril) 10 mg PRN Q6HRS PRN PO MUSCLE SPASMS Last administered on 06/19/17 11:31; Start 06/18/17 at 09:45 Diazepam (Valium) 2 mg PRN TID PRN PO ANXIETY Last administered on 06/18/17 15 :28; Start 06/18/17 at 09:45 Acetaminophen/ Hydrocodone Bitart (Lortab 5/325) 2 tab PRN Q4HRS PRN PO PAIN Last administered on 06/19/17 09:18; Start 06/18/17 at 15:30 Ondansetron HCl (Zofran) 4 mg STK-MED ONCE .ROUTE ; Start 06/18/17 at 15:26; Stop 06/18/17 at 15:27; Status DC Gadobutrol (Gadavist) 10 mmol 1X ONCE IV Last administered on 06/18/17 15:30 ; Start 06/18/17 at 15:30; Stop 06/18/17 at 15:31; Status DC Hydralazine HCl (Apresoline) 10 mg PRN Q4HRS PRN IVP ELEVATED BP, SEE COMMENTS Last administered on 06/19/17 12:14; Start 06/18/17 at 17:15 Aspirin (Ecotrin) 81 mg DAILYWBKFT PO Last administered on 06/19/17 09:15; Start 06/18/17 at 18:30; Stop 06/19/17 at 10:53; Status DC Aspirin (Ecotrin) 325 mg DAILYWBKFT PO ; Start 06/20/17 at 08:00 Active Scripts Active Reported Amoxicillin 875 Mg Tablet 875 Mg PO BID Atorvastatin Calcium 40 Mg Tablet 1 Tab PO DAILY Metoprolol Succinate ( Xl ) (Metoprolol Succinate) 25 Mg Tab.er.24h 1 Tab PO DAILY Nitrostat (Nitroglycerin) 0.4 Mg Tab.subl 1 Tab SL UD Ultram (Tramadol Hcl) 50 Mg Tablet 1-2 Tab PO Q8HRS Allergies Allergies: Coded Allergies: No Known Drug Allergies (Unverified , 06/17/17) ROS Review of System GEN: Denies fever or weight loss HEENT: as per HPI CV: Denies chest pain RESP: No shortness of breath or cough GI: Denies nausea, vomiting M/S: No myalgias NEURO: Headache Physical Exam General: Alert, Oriented X3, No acute distress Lungs: Clear to auscultation Heart: Regular rate, Other (left carotid bruit) Abdomen: Normal bowel sounds, Soft, No tenderness, No masses Extremities: No edema, Other (2+ femoral, DP, 2+ right radial, left radial absent, well healed radial artery harvest scar) Skin: No rashes, No breakdown Neuro: Normal gait, Normal speech, Sensation intact MUSCULOSKELETAL: Full range of motion without pain Vitals VITALS Vital Signs Date Time Temp Pulse Resp B/P (MAP) Pulse Ox O2 Delivery O2 Flow Rate FiO2 06/19/17 12:14 56 188/92 06/19/17 11:00 98.5 16 96 Room Air 98.5 Labs Labs Laboratory Tests Test 06/17/17 14:00 06/17/17 17:30 06/18/17 04:00 06/19/17 12:17 Troponin I Quantitative < 0.017 ng/mL (0.000-0.055) < 0.017 ng/mL (0.000-0.055) White Blood Count 11.6 x10^3/uL (4.0-11.0) Red Blood Count 5.16 x10^6/uL (4.30-5.70) Hemoglobin 15.2 g/dL (13.0-17.5) Hematocrit 44.8 % (39.0-53.0) Mean Corpuscular Volume 87 fL (79-100) Mean Corpuscular Hemoglobin 29 pg (25-35) Mean Corpuscular Hemoglobin Concent 34 g/dL (31-37) Red Cell Distribution Width 13.9 % (11.5-14.5) Platelet Count 220 x10^3/uL (140-400) Neutrophils (%) (Auto) 71 % (31-73) Lymphocytes (%) (Auto) 19 % (24-48) Monocytes (%) (Auto) 8 % (0-9) Eosinophils (%) (Auto) 1 % (0-3) Basophils (%) (Auto) 1 % (0-3) Neutrophils # (Auto) 8.3 x10^3uL (1.8-7.7) Lymphocytes # (Auto) 2.2 x10^3/uL (1.0-4.8) Monocytes # (Auto) 0.9 x10^3/uL (0.0-1.1) Eosinophils # (Auto) 0.2 x10^3/uL (0.0-0.7) Basophils # (Auto) 0.1 x10^3/uL (0.0-0.2) Sodium Level 142 mmol/L (136-145) Potassium Level 4.0 mmol/L (3.5-5.1) Chloride Level 105 mmol/L (98-107) Carbon Dioxide Level 26 mmol/L (21-32) Anion Gap 11 (6-14) Blood Urea Nitrogen 9 mg/dL (8-26) Creatinine 1.0 mg/dL (0.7-1.3) Estimated GFR (Cockcroft-Gault) 76.7 Glucose Level 120 mg/dL (70-99) Calcium Level 8.8 mg/dL (8.5-10.1) Urine Opiates Screen Pos (NEG) Urine Methadone Screen Neg (NEG) Urine Barbiturates Neg (NEG) Urine Phencyclidine Screen Neg (NEG) Urine Amphetamine/Methamphetamine Neg (NEG) Urine Benzodiazepines Screen Neg (NEG) Urine Cocaine Screen Neg (NEG) Urine Cannabinoids Screen Neg (NEG) Urine Ethyl Alcohol Neg (NEG) Laboratory Tests Test 06/19/17 12:17 Urine Opiates Screen Pos (NEG) Urine Methadone Screen Neg (NEG) Urine Barbiturates Neg (NEG) Urine Phencyclidine Screen Neg (NEG) Urine Amphetamine/Methamphetamine Neg (NEG) Urine Benzodiazepines Screen Neg (NEG) Urine Cocaine Screen Neg (NEG) Urine Cannabinoids Screen Neg (NEG) Urine Ethyl Alcohol Neg (NEG) Assessment/Plan Assessment/Plan Headache with Hypertensive crisis and blurred vision-improving 57 year old male with asymptomatic bilateral carotid stenosis. Carotid US suggests 50-70%. Recommend: 1. Continued antiplatelets therapy. 2. Hypertensive management. 3. Hyperlipidemia management-continue statin, follow up lipid profile, exercise. 4. Tobacco cessation-patient started on Chantix. 5. Follow up Carotid US in 6 months. 6. Follow up with Work Order Sorting Clerk Discussed plan of care with Dr. Kilgore, he plans to see the patient and make additional recommendations. REBECCA PAN APRN Jun 19, 2017 14:03
[2017-06-19 14:39] VITALS: BP 183/89
[2017-06-19] MEDS ORDERED: LISINOPRIL 10 MG TABLET PO ONE (15:00)
[2017-06-19] MEDS ORDERED: NICOTINE 7MG PATCH. TD ONE (15:07)
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
--- NOTE | 2017-06-19 16:09 | PDOC ---
PROGRESS NOTES Assessment Assessment IMPRESSION: PRES most likely. Subacute posterior occipital infarcts left > right? Hypertensive crisis, BP 231/112 mmHg. HTN Carotid A stenosis 50-70%. RECOMMENDATIONS/PLAN: BP control. Increased ASA from 81 mg to 325 mg daily. Continue Lipitor 40 mg HS. Please consult Vascular Surgery for carotid A stenosis. Discussed with him and his at bedside. Past Medical History Past Medical History history of hypertension, hypercholesterolemia, CAD status post CABG, Cardiovascular: CAD, HTN Pulmonary: No pertinent hx Hepatobiliary: No pertinent hx Psych: No pertinent hx Musculoskeletal: low back pain Rheumatologic: No pertinent hx Infectious disease: No pertinent hx Endocrine: No pertinent hx Dermatology: No pertinent hx Past Surgical History CABG Family History Hypertension Social History Smoke: 1 pack per day ALCOHOL: none Drugs: None ALLERGY: Reviewed. MEDICATIONS: Refer to MAR REVIEW OF SYSTEMS: Constitutional: No malnutrition, weight loss, cachexia. Head: No recent traumatic brain or head injury. Skin: No edema, or rash. Ear: No infection. Eyes: No vision loss, or diplopia. Nose: No bleeding or purulent discharges. Hearing: No hearing decrease. Neck: No injury. Cardiac: CAD, s/p CABG, HTN, HLD Pulmonary: No pneumonia. GI: No GI Ulcer, GI bleeding Urinary/genital: No dysuria, urinary retention Endocrine: No cousin face, craniofacial dysmorphism, polydactyly. Skeletomuscular: No muscular atrophy, deformity. Neurological: see HP. Psychiatric: Denies drug use/abuse. Otherwise, not [id number] review of systems. PHYSICAL EXAMINATION: General appearance in subacute distress. HEENT: Normocephalic and nontraumatic. Eyes, nose, ears, and throat are unremarkable. Hearing decrease. Neck is supple. No lymphadenopathy. No Crepitus. Cardiovascular: S1, S2, regular rate and rhythm. Pulmonary: Clear to auscultation bilaterally. Abdomen: Bowel sounds are positive. Abdomen is soft, nontender, and nondistended. Extremities: No rash, lesions, or edema. No restriction of range of motion NEUROLOGICAL EXAMINATION: Alert. Oriented to time, place and person. PERRL. EOMI. CN: no focal findings. Muscle tone: within normal. Muscle strength: 5 DTR: 2 Plantar reflex: Flexor response bilaterally Gait: not examined in bed. Sensory exam: no abnormal findings. No acute cerebellar signs elicited. F-T-N test fine. Objective Objective Vital Signs Date Time Temp Pulse Resp B/P (MAP) Pulse Ox O2 Delivery O2 Flow Rate FiO2 06/19/17 15:02 61 183/89 06/19/17 14:44 16 Room Air 06/19/17 14:39 97.9 97 97.9 Vitals Signs Vitals VS - Last 72 Hours, by Label Date Time Temp Pulse Resp B/P (MAP) Pulse Ox O2 Delivery O2 Flow Rate FiO2 06/19/17 15:02 61 183/89 06/19/17 14:44 16 Room Air 06/19/17 14:39 97.9 56 16 183/89 (120) 97 Room Air 97.9 06/19/17 13:44 18 Room Air 06/19/17 12:14 56 188/92 06/19/17 11:00 98.5 57 16 172/83 (112) 96 Room Air 98.5 06/19/17 10:18 16 Room Air 06/19/17 09:18 16 Room Air 06/19/17 09:15 53 155/79 06/19/17 08:00 Room Air 06/19/17 07:00 97.9 57 16 155/79 (104) 99 Room Air 97.9 06/19/17 06:01 97 06/19/17 05:01 18 97 Room Air 06/19/17 03:50 97.5 50 18 136/74 (94) 97 Room Air 97.5 06/18/17 23:09 97.5 50 18 106/59 (75) 96 Room Air 97.5 06/18/17 21:00 18 97 Room Air 06/18/17 20:00 Room Air 06/18/17 19:50 97.5 56 16 127/68 (87) 97 Room Air 97.5 06/18/17 19:40 20 97 Room Air 06/18/17 18:54 98 Room Air 06/18/17 16:00 54 20 160/76 (104) 98 Room Air 06/18/17 15:28 98 Room Air 06/18/17 13:07 58 18 155/73 (100) 98 Room Air 06/18/17 11:00 54 16 149/73 (98) 98 Room Air 06/18/17 09:43 57 149/77 06/18/17 09:00 48 18 140/74 (96) 97 Room Air 06/18/17 08:00 Room Air 06/18/17 08:00 98.6 52 16 141/73 (95) 99 Room Air 98.6 06/18/17 07:22 97 Laboratory Laboratory Laboratory Tests Test 06/19/17 12:17 Urine Opiates Screen Pos (NEG) Urine Methadone Screen Neg (NEG) Urine Barbiturates Neg (NEG) Urine Phencyclidine Screen Neg (NEG) Urine Amphetamine/Methamphetamine Neg (NEG) Urine Benzodiazepines Screen Neg (NEG) Urine Cocaine Screen Neg (NEG) Urine Cannabinoids Screen Neg (NEG) Urine Ethyl Alcohol Neg (NEG) Medication Medications Current Medications Aspirin (Ecotrin) 81 mg DAILYWBKFT PO Last administered on 06/19/17 09:15; Start 06/18/17 at 18:30; Stop 06/19/17 at 10:53; Status DC Aspirin (Ecotrin) 325 mg DAILYWBKFT PO ; Start 06/20/17 at 08:00 Hydralazine HCl (Apresoline) 10 mg PRN Q4HRS PRN IVP ELEVATED BP, SEE COMMENTS Last administered on 06/19/17 12:14; Start 06/18/17 at 17:15 Lisinopril (Prinivil) 10 mg 1X ONCE PO Last administered on 06/19/17 15:02; Start 06/19/17 at 15:00; Stop 06/19/17 at 15:01; Status DC Lisinopril (Prinivil) 20 mg DAILY PO ; Start 06/20/17 at 09:00 Nicotine (Nicoderm Cq 7mg) 1 patch DAILY TD ; Start 06/20/17 at 09:00 Nicotine (Nicoderm Cq 7mg) 1 patch STK-MED ONCE TD ; Start 06/19/17 at 15:07; Stop 06/19/17 at 15:08; Status DC Comment Review of Relevant I have reviewed the following items mateo (where applicable) has been applied. ACE MOODY MD Jun 19, 2017 16:09
[2017-06-19 16:29] VITALS: BP 163/80
[2017-06-19] MEDS ORDERED: LISI-334 PO (16:30)
[2017-06-19] MEDS ORDERED: ASPI325T11 PO (16:39)
[2017-06-19] MEDS ORDERED: NICOTINE 7MG PATCH. TD SCH (17:00)
[2017-06-20] MEDS ORDERED: ASPIRIN ENTERIC COATED 325 MG TABLET.DR. PO SCH (08:00)
[2017-06-20] MEDS ORDERED: NICOTINE 7MG PATCH. TD SCH (09:00)
[2017-06-20] MEDS ORDERED: LISINOPRIL 20 MG TABLET PO SCH (09:00)
== END 2017-06-19 17:00 | disposition home or self-care (01) | DRG 304 ==
LOC: ER 10:39 → 1 WEST ICU 12:23 → 2 NORTH 06-18 19:49
PROVIDERS: ADMIT Internal Medicine; ATTEND Internal Medicine
DX: I16.9 Hypertensive crisis, unspecified (principal); I67.83 Posterior reversible encephalopathy syndrome; I16.0 Hypertensive urgency; E78.00 Pure hypercholesterolemia, unspecified; I10 Essential (primary) hypertension; E78.5 Hyperlipidemia, unspecified; F17.210 Nicotine dependence, cigarettes, uncomplicated; G89.29 Other chronic pain; H53.40 Unspecified visual field defects; I25.10 Atherosclerotic heart disease of native coronary artery without angina pectoris; I65.23 Occlusion and stenosis of bilateral carotid arteries; I73.9 Peripheral vascular disease, unspecified; J44.9 Chronic obstructive pulmonary disease, unspecified; Z79.899 Other long term (current) drug therapy; Z82.49 Family history of ischemic heart disease and other diseases of the circulatory system; Z95.1 Presence of aortocoronary bypass graft; F32.9 Major depressive disorder, single episode, unspecified; H53.8 Other visual disturbances; M54.2 Cervicalgia; M54.5 Low back pain
CPT/HCPCS: 36415; 70450; 70546; 70551; 71010; 80048; 80076; 80307; 83880; 84443; 84484; 85025; 87641; 93005; 93880; 96365; A9585; C8929; J0360; J1885; J2270; J2405; J7050; 99285-25; G0479; J7030

== ENCOUNTER 2017-12-23 12:03 | Emergency (ER) | payer OTHER | END 2017-12-23 13:23 | disposition home or self-care (01) | LOC: ER 12:03 | DX: L03.116 Cellulitis of left lower limb (principal); L02.612 Cutaneous abscess of left foot; I25.10 Atherosclerotic heart disease of native coronary artery without angina pectoris; F32.9 Major depressive disorder, single episode, unspecified; E78.00 Pure hypercholesterolemia, unspecified; I11.9 Hypertensive heart disease without heart failure; I95.9 Hypotension, unspecified; Z95.1 Presence of aortocoronary bypass graft | CPT/HCPCS: 99283 ==

== ENCOUNTER 2018-02-10 08:55 | Emergency (ER) | payer OTHER ==
[2018-02-10] MEDS: IV NORMAL SALINE 1000ML BAG 1,000 ML IV (09:29)
[2018-02-10] MEDS: KETOROLAC 30 MG/ML INJ. IV (09:29)
[2018-02-10] MEDS: METOCLOPRAMIDE HCL 10 MG/2 ML VIAL. IV (09:30)
[2018-02-10] MEDS: diphenhydrAMINE 50 MG/ML VIAL IVP (09:30)
== END 2018-02-10 10:25 | disposition home or self-care (01) ==
LOC: ER 08:55
DX: G43.909 Migraine, unspecified, not intractable, without status migrainosus (principal); I25.10 Atherosclerotic heart disease of native coronary artery without angina pectoris; E78.00 Pure hypercholesterolemia, unspecified; I10 Essential (primary) hypertension; K21.9 Gastro-esophageal reflux disease without esophagitis; Z95.1 Presence of aortocoronary bypass graft; Z79.899 Other long term (current) drug therapy
CPT/HCPCS: 96374; 96375; 99284; J1200; J1885; J2765; J7030

== ENCOUNTER 2018-02-22 10:22 | Inpatient (IN) | payer OTHER ==
[2018-02-22 11:03] LABS: ADD MAN DIFF? NO
[2018-02-22 11:06] LABS: BASO # 0.1 x10^3/uL (0.0-0.2); BASO % 1 % (0-3); EOS # 0.1 x10^3/uL (0.0-0.7); EOS % 1 % (0-3); HEMOGLOBIN 17.1 g/dL (13.0-17.5); LYMPH # 2.3 x10^3/uL (1.0-4.8); LYMPH % 19 % (24-48); MEAN CORPUSCULAR HEMOGLOBIN 30 pg (25-35); MEAN CORPUSCULAR HGB CONC 34 g/dL (31-37); MEAN CORPUSCULAR VOLUME 87 fL (79-100); MONO # 0.9 x10^3/uL (0.0-1.1); MONO % 8 % (0-9); NEUT # 8.7 x10^3uL (1.8-7.7); NEUT % 72 % (31-73); PLATELET COUNT 278 x10^3/uL (140-400); RED BLOOD COUNT 5.76 x10^6/uL (4.30-5.70); RED CELL DISTRIBUTION WIDTH 13.5 % (11.5-14.5); WHITE BLOOD COUNT 12.1 x10^3/uL (4.0-11.0)
[2018-02-22 11:12] LABS: ANION GAP 9 (6-14); BLOOD UREA NITROGEN 11 mg/dL (8-26); BUN/CREATININE RATIO 11 (6-20); CALCIUM 9.6 mg/dL (8.5-10.1); CARBON DIOXIDE 27 mmol/L (21-32); CHLORIDE 102 mmol/L (98-107); GFR 76.7; GLUCOSE 111 mg/dL (70-99); POTASSIUM 4.4 mmol/L (3.5-5.1); SODIUM 138 mmol/L (136-145)
[2018-02-22] MEDS: METOCLOPRAMIDE HCL 10 MG/2 ML VIAL. IV (11:13)
[2018-02-22] MEDS: KETOROLAC 15 MG/ML VIAL. IV (11:15)
[2018-02-22 11:17] LABS: ALBUMIN 3.7 g/dL (3.4-5.0); ALBUMIN/GLOBULIN RATIO 0.9 (1.0-1.7); ALK PHOS 109 U/L (46-116); ALT (SGPT) 33 U/L (16-63); AST (SGOT) 27 U/L (15-37); TOTAL BILIRUBIN 0.5 mg/dL (0.2-1.0); TOTAL PROTEIN 7.9 g/dL (6.4-8.2)
[2018-02-22] MEDS: diphenhydrAMINE 50 MG/ML VIAL IVP (11:17)
[2018-02-22] MEDS ORDERED: NITROGLYCERIN SUBLINGUAL 0.4 MG BOTTLE OF 25. SL (14:30)
[2018-02-22] MEDS: LISINOPRIL 20 MG TABLET PO (15:00)
[2018-02-22] MEDS: METOPROLOL SUCC 24HR ER 50 MG TAB.ER.24H. PO (16:10)
[2018-02-22] MEDS: ASPIRIN ENTERIC COATED 325 MG TABLET.DR. PO (16:13)
[2018-02-22] MEDS: NICOTINE 21MG PATCH. TD (16:14)
[2018-02-22] MEDS ORDERED: ASPIRIN 300 MG SUPP.RECT PR (18:00)
[2018-02-22] MEDS ORDERED: ACETAMINOPHEN 650 MG SUPP.RECT. PR (18:00)
[2018-02-22] MEDS ORDERED: ACETAMINOPHEN 325 MG TABLET. PO (18:00)
[2018-02-22] MEDS: PANTOPRAZOLE IV PUSH 40 MG VIAL. IVP (18:30)
[2018-02-22 18:48] LABS: BARBITURATES POS (NEG); BENZODIAZEPINES NEG (NEG); CANNABINOIDS NEG (NEG); COCAINE NEG (NEG); METHADONE NEG (NEG); OPIATES NEG (NEG); PHENCYCLIDINE NEG (NEG)
[2018-02-22 18:51] LABS: AMPHETAMINE/METHAMPHETAMINE NEG (NEG); ETHANOL, URINE NEG (NEG)
[2018-02-22 18:58] LABS: C-REACTIVE PROTEIN 4.8 mg/L (0-3.3)
[2018-02-22] MEDS: IV NORMAL SALINE 1000ML BAG 1,000 ML IV (20:43)
[2018-02-22] MEDS: ATORVASTATIN CALCIUM 40 MG TABLET. PO (20:43)
[2018-02-22] MEDS: ACETAMINOPHEN/CODEINE 300/30MG TABLET. PO (20:44)
[2018-02-22] MEDS: ENOXAPARIN 40 MG/0.4 ML SYRINGE. SQ (20:44)
[2018-02-22] MEDS: METOCLOPRAMIDE 10 MG TABLET. PO (20:48)
[2018-02-22] MEDS ORDERED: SMZ/TMP 800/160MG TABLET. PO (21:00)
[2018-02-22] MEDS ORDERED: AMOXICILLIN/K CLAV 875/125MG TABLET. PO (21:00)
[2018-02-22] MEDS: traMADol 50 MG TABLET PO (22:00)
[2018-02-23] MEDS: IV NORMAL SALINE 1000ML BAG 1,000 ML IV ×2 (05:00→20:47)
[2018-02-23 05:03] LABS: CHOLESTEROL 260 mg/dL (0-200); HDLC 40 mg/dL (40-60); LDLC 190 mg/dL (0-100); NON-HDL CHOLESTEROL 220 mg/dL (0-129); TRIGLYCERIDES 148 mg/dL (0-150); VLDLC 30 mg/dL (0-40)
[2018-02-23 05:05] LABS: CHOLESTEROL/HDL RATIO 6.5
[2018-02-23] MEDS: traMADol 50 MG TABLET PO ×3 (06:00→22:00)
[2018-02-23 06:22] LABS: SEDIMENTATION RATE 13 (0-15)
[2018-02-23] MEDS ORDERED: CONTRAST GIVEN MC (07:00)
[2018-02-23] MEDS: IOHEXOL 300 MG/ML 100ML VIAL. IV (07:00)
[2018-02-23] MEDS ORDERED: ASPIRIN ENTERIC COATED 325 MG TABLET.DR. PO (08:00)
[2018-02-23] MEDS: NICOTINE 21MG PATCH. TD (09:00)
[2018-02-23] MEDS ORDERED: PROPOFOL 20 ML IV ×2 (10:38→11:47)
[2018-02-23] MEDS: BENZOCAINE ONE 20% MUCOSAL SPRAY. MM (11:02)
[2018-02-23] MEDS: LIDOCAINE 2% TOPICAL JELLY 5GM TUBE. TP (11:05)
[2018-02-23] MEDS: LIDOCAINE 2% VISCOUS 15 ML SOLUTION. SWSW (11:20)
[2018-02-23] MEDS: PANTOPRAZOLE IV PUSH 40 MG VIAL. IVP (15:22)
[2018-02-23] MEDS: METOPROLOL SUCC 24HR ER 50 MG TAB.ER.24H. PO (15:24)
[2018-02-23] MEDS: LISINOPRIL 20 MG TABLET PO (15:24)
[2018-02-23] MEDS: ATORVASTATIN CALCIUM 40 MG TABLET. PO (20:48)
[2018-02-23] MEDS: BUTALB/APAP/CAFEIN 50/325/40MG TABLET. PO (20:48)
[2018-02-23] MEDS: ENOXAPARIN 40 MG/0.4 ML SYRINGE. SQ (20:48)
[2018-02-23] MEDS: METOCLOPRAMIDE 10 MG TABLET. PO (22:26)
[2018-02-24] MEDS: IV NORMAL SALINE 1000ML BAG 1,000 ML IV ×2 (01:00→08:36)
[2018-02-24 08:21] LABS: RPR Non Reactive (Non Reactive)
[2018-02-24] MEDS: CLOPIDOGREL BISULFATE 75 MG TABLET PO (08:34)
[2018-02-24] MEDS: traMADol 50 MG TABLET PO ×2 (08:34→12:55)
[2018-02-24] MEDS: ASPIRIN ENTERIC COATED 81 MG TABLET.DR. PO (08:34)
[2018-02-24] MEDS: PANTOPRAZOLE IV PUSH 40 MG VIAL. IVP (08:34)
[2018-02-24] MEDS: METOPROLOL SUCC 24HR ER 50 MG TAB.ER.24H. PO (08:35)
[2018-02-24] MEDS: NICOTINE 21MG PATCH. TD (08:35)
[2018-02-24] MEDS: LISINOPRIL 20 MG TABLET PO (08:35)
[2018-02-24] MEDS: BUTALB/APAP/CAFEIN 50/325/40MG TABLET. PO (11:13)
[2018-02-24] MEDS: METOCLOPRAMIDE 10 MG TABLET. PO (12:55)
[2018-02-26 14:20] LABS: PROTEIN S ACTIVITY SEE SEPARATE REPORT
[2018-02-26 14:20] LABS: PROTEIN C ACTIVITY SEE SEPARATE REPORT
[2018-02-26 15:25] LABS: ANA INTERP Positive (.)
== END 2018-02-24 13:30 | disposition home health service (06) | DRG 66 ==
LOC: ER 10:22 → 6 SOUTH 12:20
DX: I63.9 Cerebral infarction, unspecified (principal); E78.00 Pure hypercholesterolemia, unspecified; K21.9 Gastro-esophageal reflux disease without esophagitis; F32.9 Major depressive disorder, single episode, unspecified; G43.909 Migraine, unspecified, not intractable, without status migrainosus; I10 Essential (primary) hypertension; I25.10 Atherosclerotic heart disease of native coronary artery without angina pectoris; Z95.1 Presence of aortocoronary bypass graft; E78.5 Hyperlipidemia, unspecified; I65.23 Occlusion and stenosis of bilateral carotid arteries; I65.03 Occlusion and stenosis of bilateral vertebral arteries; F17.210 Nicotine dependence, cigarettes, uncomplicated; M54.5 Low back pain; I35.0 Nonrheumatic aortic (valve) stenosis; J44.9 Chronic obstructive pulmonary disease, unspecified; Z71.6 Tobacco abuse counseling; Z82.49 Family history of ischemic heart disease and other diseases of the circulatory system
CPT/HCPCS: 36415; 70450; 70496; 70498; 70551; 80053; 80061; 80307; 85025; 85220; 85302; 85306; 85651; 86038; 86140; 86593; 92610-GN; 93005; 93312; 93320; 93325; 96374; 96375; 97110-GO; 97110-GP; 97162-GP; 97166-GO; 99285; 99285-25; C8924; C9113; J1200; J1650; J1885; J2704; J2765; J7030; J8597; Q9967

== ENCOUNTER 2018-03-18 21:54 | Inpatient (IN) | payer OTHER ==
[2018-03-18 22:45] LABS: ADD MAN DIFF? NO
[2018-03-18 22:47] LABS: BASO % 0 % (0-3); EOS # 0.1 x10^3/uL (0.0-0.7); EOS % 1 % (0-3); HEMATOCRIT 47.9 % (39.0-53.0); HEMOGLOBIN 16.8 g/dL (13.0-17.5); LYMPH # 1.9 x10^3/uL (1.0-4.8); LYMPH % 16 % (24-48); MEAN CORPUSCULAR HEMOGLOBIN 30 pg (25-35); MEAN CORPUSCULAR HGB CONC 35 g/dL (31-37); MEAN CORPUSCULAR VOLUME 87 fL (79-100); MONO # 1.1 x10^3/uL (0.0-1.1); MONO % 9 % (0-9); NEUT # 9.1 x10^3uL (1.8-7.7); NEUT % 75 % (31-73); PLATELET COUNT 275 x10^3/uL (140-400); RED BLOOD COUNT 5.54 x10^6/uL (4.30-5.70); RED CELL DISTRIBUTION WIDTH 13.4 % (11.5-14.5); WHITE BLOOD COUNT 12.1 x10^3/uL (4.0-11.0)
[2018-03-18 22:55] LABS: ANION GAP 12 (6-14); BLOOD UREA NITROGEN 13 mg/dL (8-26); BUN/CREATININE RATIO 16 (6-20); CALCIUM 9.6 mg/dL (8.5-10.1); CARBON DIOXIDE 25 mmol/L (21-32); CHLORIDE 106 mmol/L (98-107); CREATININE 0.8 mg/dL (0.7-1.3); GFR 99.3; GLUCOSE 137 mg/dL (70-99); POTASSIUM 3.6 mmol/L (3.5-5.1); SODIUM 143 mmol/L (136-145)
[2018-03-18 23:01] LABS: ALBUMIN 3.9 g/dL (3.4-5.0); ALBUMIN/GLOBULIN RATIO 1.1 (1.0-1.7); ALK PHOS 121 U/L (46-116); ALT (SGPT) 39 U/L (16-63); AST (SGOT) 23 U/L (15-37); TOTAL BILIRUBIN 0.3 mg/dL (0.2-1.0); TOTAL PROTEIN 7.5 g/dL (6.4-8.2)
[2018-03-18 23:03] LABS: TROPONINI < 0.017 ng/mL (0.000-0.055)
[2018-03-19 01:23] LABS: BILIRUBIN,URINE NEGATIVE (NEG); CLARITY,URINE CLEAR; COLOR,URINE YELLOW; GLUCOSE,URINE 500 mg/dL (NEG); NITRITE,URINE NEGATIVE (NEG); PROTEIN,URINE NEGATIVE (NEG-TRACE); UROBILINOGEN,URINE 0.2 mg/dL (0.2 mg/dL)
[2018-03-19 01:32] LABS: BACTERIA,URINE 0 /HPF (0-FEW); SQUAMOUS EPITHELIAL CELL,UR OCC /LPF
[2018-03-19] MEDS: HYDROcodone/APAP 5/325MG 1 TAB TABLET PO ×3 (06:50→16:24)
[2018-03-19] MEDS: ONDANSETRON PF 4 MG/2 ML VIAL. IV ×2 (06:53→16:27)
[2018-03-19] MEDS ORDERED: PNEUMOCOCCAL VAX SCREEN BY RX. MC (07:45)
[2018-03-19] MEDS ORDERED: ACETAMINOPHEN 650 MG SUPP.RECT. PR (09:00)
[2018-03-19] MEDS ORDERED: ACETAMINOPHEN 325 MG TABLET. PO (09:00)
[2018-03-19] MEDS ORDERED: NITROGLYCERIN SUBLINGUAL 0.4 MG BOTTLE OF 25. SL (09:15)
[2018-03-19] MEDS: ASPIRIN 325 MG TABLET PO (12:56)
[2018-03-19] MEDS: CLOPIDOGREL BISULFATE 75 MG TABLET PO (12:56)
[2018-03-19] MEDS: LISINOPRIL 20 MG TABLET PO (12:57)
[2018-03-19] MEDS: METOPROLOL SUCC 24HR ER 50 MG TAB.ER.24H. PO (12:57)
[2018-03-19] MEDS: PANTOPRAZOLE 40 MG TABLET.DR. PO (16:20)
[2018-03-19] MEDS: traMADol 50 MG TABLET PO (21:14)
[2018-03-19] MEDS: ATORVASTATIN CALCIUM 40 MG TABLET. PO (21:14)
[2018-03-20 04:45] LABS: ADD MAN DIFF? NO
[2018-03-20 04:54] LABS: BASO # 0.1 x10^3/uL (0.0-0.2); BASO % 1 % (0-3); EOS # 0.2 x10^3/uL (0.0-0.7); EOS % 3 % (0-3); HEMATOCRIT 42.5 % (39.0-53.0); HEMOGLOBIN 14.8 g/dL (13.0-17.5); LYMPH # 2.3 x10^3/uL (1.0-4.8); LYMPH % 24 % (24-48); MEAN CORPUSCULAR HEMOGLOBIN 30 pg (25-35); MEAN CORPUSCULAR HGB CONC 35 g/dL (31-37); MEAN CORPUSCULAR VOLUME 87 fL (79-100); MONO # 1.1 x10^3/uL (0.0-1.1); MONO % 11 % (0-9); NEUT % 62 % (31-73); PLATELET COUNT 238 x10^3/uL (140-400); RED BLOOD COUNT 4.89 x10^6/uL (4.30-5.70); RED CELL DISTRIBUTION WIDTH 13.4 % (11.5-14.5); WHITE BLOOD COUNT 9.7 x10^3/uL (4.0-11.0)
[2018-03-20 05:31] LABS: ALBUMIN 3.3 g/dL (3.4-5.0); ALBUMIN/GLOBULIN RATIO 0.9 (1.0-1.7); ALK PHOS 100 U/L (46-116); ALT (SGPT) 31 U/L (16-63); ANION GAP 9 (6-14); AST (SGOT) 18 U/L (15-37); BLOOD UREA NITROGEN 13 mg/dL (8-26); BUN/CREATININE RATIO 14 (6-20); CARBON DIOXIDE 27 mmol/L (21-32); CHLORIDE 104 mmol/L (98-107); CREATININE 0.9 mg/dL (0.7-1.3); GFR 86.7; GLUCOSE 106 mg/dL (70-99); POTASSIUM 3.6 mmol/L (3.5-5.1); SODIUM 140 mmol/L (136-145); TOTAL BILIRUBIN 0.4 mg/dL (0.2-1.0); TOTAL PROTEIN 6.8 g/dL (6.4-8.2)
[2018-03-20] MEDS: PANTOPRAZOLE 40 MG TABLET.DR. PO ×2 (07:30→09:35)
[2018-03-20] MEDS: BARIUM SULFATE 40% (APPLE) 148 GM PWD. PO (09:15)
[2018-03-20] MEDS: ONDANSETRON PF 4 MG/2 ML VIAL. IV ×2 (09:34→12:37)
[2018-03-20] MEDS: LISINOPRIL 20 MG TABLET PO ×2 (09:35→15:34)
[2018-03-20] MEDS: METOPROLOL SUCC 24HR ER 50 MG TAB.ER.24H. PO ×2 (09:36→15:33)
[2018-03-20] MEDS: CLOPIDOGREL BISULFATE 75 MG TABLET PO ×2 (09:36→15:32)
[2018-03-20] MEDS: ASPIRIN ENTERIC COATED 325 MG TABLET.DR. PO ×2 (09:36→15:32)
[2018-03-20] MEDS: PNEUMOC CONJ VACC 23-VALENT 0.5 ML VIAL. VAX IM (09:38)
[2018-03-20] MEDS ORDERED: LIDOCAINE 2%/EPI 1:100,000 20 ML VIAL. (12:01)
[2018-03-20] MEDS: LIDOCAINE 2%/EPI 1:100,000 20 ML VIAL. IJ (13:15)
== END 2018-03-20 17:23 | disposition home or self-care (01) | DRG 42 ==
LOC: 4 NORTH 03-19 03:35 → ER 21:54
PROC: 0JH602Z Insertion of Monitoring Device into Chest Subcutaneous Tissue and Fascia, Open Approach (ICD-10-PCS; principal; 2018-03-20)
DX: G45.9 Transient cerebral ischemic attack, unspecified (principal); I65.01 Occlusion and stenosis of right vertebral artery; I35.0 Nonrheumatic aortic (valve) stenosis; I65.02 Occlusion and stenosis of left vertebral artery; R13.10 Dysphagia, unspecified; K21.9 Gastro-esophageal reflux disease without esophagitis; E78.00 Pure hypercholesterolemia, unspecified; E78.5 Hyperlipidemia, unspecified; F17.210 Nicotine dependence, cigarettes, uncomplicated; F32.9 Major depressive disorder, single episode, unspecified; G43.909 Migraine, unspecified, not intractable, without status migrainosus; I10 Essential (primary) hypertension; I25.10 Atherosclerotic heart disease of native coronary artery without angina pectoris; Z80.9 Family history of malignant neoplasm, unspecified; Z82.49 Family history of ischemic heart disease and other diseases of the circulatory system; Z86.61 Personal history of infections of the central nervous system; Z86.73 Personal history of transient ischemic attack (TIA), and cerebral infarction without residual deficits; Z95.1 Presence of aortocoronary bypass graft; R61 Generalized hyperhidrosis; R30.0 Dysuria; M19.90 Unspecified osteoarthritis, unspecified site; M54.5 Low back pain; I65.22 Occlusion and stenosis of left carotid artery
CPT/HCPCS: 33282; 36415; 70450; 70551; 71045; 74230; 80053; 81001; 84484; 85025; 90732; 92526-GN; 92610-GN; 92611-GN; 93005; 97110-GO; 97116-GP; 97162-GP; 97166-GO; 99285; 99285-25; J2405; J3490

== ENCOUNTER → 2018-03-28 | Outpatient (CLI) | payer OTHER | END | disposition home or self-care (01) | LOC: KCIC 08:05 | DX: M50.323 Other cervical disc degeneration at C6-C7 level (principal); M47.892 Other spondylosis, cervical region; K44.9 Diaphragmatic hernia without obstruction or gangrene | CPT/HCPCS: 74220 ==